=== PATIENT | female | born 1945 | race Caucasian/White ===

== ENCOUNTER 2016-11-20 12:26 | Inpatient (IN) | payer MEDICARE, BC ==
[2016-11-20 13:05] LABS: BASOPHILS % (AUTO) 1 % (0-3); EOSINOPHILS % (AUTO) 1 % (0-9); HEMATOCRIT 32 % (35-47); MONOCYTES % (AUTO) 6.4 % (0-12); NEUTROPHILS % (AUTO) 67.1 % (37-80)
[2016-11-20] MEDS ORDERED: HYDROMORPHONE HCL 2 MG/ML 1 ML SOL ONE ×2 (13:07→14:14)
[2016-11-20] MEDS: HYDROMORPHONE HCL 2 MG/ML 1 ML SOL IV PRN ×5 (13:10→21:10)
[2016-11-20 13:13] LABS: MEAN CORPUSCULAR VOLUME 75 fL (81-99)
[2016-11-20] MEDS ORDERED: ONDANSETRON HCL 4 MG/2 ML SOL ONE (13:13)
[2016-11-20] MEDS ORDERED: ONDANSETRON HCL 4 MG/2 ML SOL IV ONE (13:15)
[2016-11-20 13:16] LABS: ALBUMIN 3.4 gm/dl (3.4-5.0); ALT 19 IU/L (14-63); CALCIUM 8.8 mg/dl (8.5-10.1); GLOM FILT RATE 40 mL/min (>60); SODIUM 139 mMol/L (136-145)
[2016-11-20] MEDS: SODIUM CHLORIDE 0.9% FLUSH 10 ML SOL IV PRN ×3 (13:16→14:23)
[2016-11-20 13:35] LABS: ANISOCYTOSIS SLIGHT AMT; OVALOCYTES PRESENT
[2016-11-20 13:53] LABS: APPEARANCE,URINE Clear; BILIRUBIN,URINE NEGATIVE (NEGATIVE); COLOR,URINE Yellow; GLUCOSE, URINE (UA) NEGATIVE (NEGATIVE); KETONES,URINE NEGATIVE (NEGATIVE); LEUKOCYTE ESTERASE ,URINE NEGATIVE (NEGATIVE); NITRATE,URINE NEGATIVE (NEGATIVE); OCCULT BLOOD,URINE NEGATIVE (NEG-TRACE); UROBILINOGEN,URINE 0.2 (0.2-1.0 EU)
[2016-11-20] MEDS ORDERED: HEPARIN 500 Unit PRE-FILL 100 U/ML SOL IV PRN (13:57)
[2016-11-20 14:07] LABS: RBC,URINE 0-1 (0-3AV/HPF)
[2016-11-20 14:08] LABS: WBC,URINE 0-4 (0-5AV/HPF)
[2016-11-20] MEDS ORDERED: [UNRECOGNIZED DRUG - OTHER] PO PRN (15:19)
[2016-11-20] MEDS ORDERED: CARBIDOPA PO PRN (15:19)
[2016-11-20] MEDS ORDERED: LEVODOPA PO PRN (15:19)
[2016-11-20] MEDS ORDERED: CLONAZEPAM 0.5 MG TAB PO PRN (15:19)
[2016-11-20] MEDS ORDERED: METRONIDAZOLE 250 MG TAB PO SCH (16:00)
[2016-11-20] MEDS: OXYCODONE HYDROCHLORIDE 5 MG TAB PO PRN (16:55)
[2016-11-20] MEDS ORDERED: WARFARIN SODIUM 3 MG TAB PO SCH (18:00)
[2016-11-20] MEDS: SODIUM CHLORIDE 0.9% 1000ML 1,000 ML IV SCH ×2 (18:48→21:50)
[2016-11-20] MEDS: ONDANSETRON HCL 4 MG/2 ML SOL IV PRN (19:00)
[2016-11-20] MEDS ORDERED: DIPHENHYDRAMINE 25 MG/10 ML ELI ONE (19:14)
[2016-11-20] MEDS: DIPHENHYDRAMINE 25 MG CAP PO PRN (19:22)
[2016-11-20] MEDS ORDERED: ALBUTEROL NEB SOL 2.5MG/3ML 1 VIAL SOL NEB PRN (19:28)
[2016-11-20] MEDS: TRAZODONE HYDROCHLORIDE 50 MG TAB PO SCH (20:32)
[2016-11-20] MEDS: ATORVASTATIN 10 MG TAB PO SCH (20:33)
[2016-11-20] MEDS: CLONAZEPAM 0.5 MG TAB PO SCH (20:33)
[2016-11-20] MEDS: PANTOPRAZOLE SODIUM 40 MG ECT PO SCH (20:33)
[2016-11-20] MEDS: BUDESONIDE INH SCH (20:39)
[2016-11-20] MEDS: FLUTICASONE PROPIONATE SPR NAS SCH (20:39)
[2016-11-20] MEDS ORDERED: TEMAZEPAM 15MG 15 MG CAP PO PRN (20:59)
[2016-11-20] MEDS ORDERED: MONTELUKAST SODIUM 10 MG TAB PO PRN (21:00)
[2016-11-21] MEDS ORDERED: DIPHENHYDRAMINE 25 MG/10 ML ELI ONE (00:08)
[2016-11-21] MEDS: HYDROMORPHONE HCL 2 MG/ML 1 ML SOL IV PRN ×3 (00:17→05:15)
[2016-11-21] MEDS: ONDANSETRON HCL 4 MG/2 ML SOL IV PRN ×4 (00:19→17:54)
[2016-11-21] MEDS: SODIUM CHLORIDE 0.9% FLUSH 10 ML SOL IV PRN ×7 (00:20→21:26)
[2016-11-21] MEDS: DIPHENHYDRAMINE 25 MG CAP PO PRN (00:24)
[2016-11-21] MEDS: OXYCODONE HYDROCHLORIDE 5 MG TAB PO PRN ×5 (02:25→21:25)
[2016-11-21] MEDS ORDERED: PROCHLORPERAZINE EDISYLATE 5 MG/ML SOL IV ONE (02:45)
[2016-11-21 07:33] LABS: BASOPHILS % (AUTO) 1 % (0-3); EOSINOPHILS % (AUTO) 1 % (0-9); HEMATOCRIT 27 % (35-47); MEAN CORPUSCULAR HGB CONC 31.8 gm/dl (32.0-36.0); MONOCYTES % (AUTO) 6.4 % (0-12); NEUTROPHILS % (AUTO) 77.2 % (37-80)
[2016-11-21 07:35] LABS: CALCIUM 7.8 mg/dl (8.5-10.1); GLOM FILT RATE 41 mL/min (>60); POTASSIUM 3.7 mMol/L (3.5-5.1); SODIUM 140 mMol/L (136-145)
[2016-11-21 07:39] LABS: MEAN CORPUSCULAR VOLUME 76 fL (81-99)
[2016-11-21 07:53] LABS: ANISOCYTOSIS SLIGHT AMT; OVALOCYTES PRESENT
[2016-11-21] MEDS ORDERED: SODIUM CHLORIDE 0.9% 1000ML 1,000 ML IV ONE (08:53)
[2016-11-21] MEDS ORDERED: DIPHENHYDRAMINE 50 MG/ML SOL IV PRN (08:53)
[2016-11-21] MEDS: BUDESONIDE INH SCH ×2 (09:29→21:20)
[2016-11-21] MEDS: PANTOPRAZOLE SODIUM 40 MG ECT PO SCH ×2 (09:35→21:22)
[2016-11-21] MEDS: CLONAZEPAM 0.5 MG TAB PO SCH ×2 (09:35→21:27)
[2016-11-21] MEDS: CITALOPRAM 20 MG TAB PO SCH (09:36)
[2016-11-21] MEDS: VERAPAMIL HYDROCHLORIDE 120 MG PO SCH (09:36)
[2016-11-21] MEDS: FUROSEMIDE 20 MG TAB PO SCH (09:36)
[2016-11-21] MEDS: PRAMIPEXOLE DIHYDROCHLORIDE 0.5 MG TAB PO SCH (09:37)
[2016-11-21] MEDS: METOPROLOL SUCCINATE 25 MG TAB.ER.24H PO SCH (09:37)
[2016-11-21] MEDS: FLUTICASONE PROPIONATE SPR NAS SCH ×2 (14:43→21:22)
[2016-11-21] MEDS ORDERED: DIPHENHYDRAMINE 50 MG/ML SOL IV ONE (21:00)
[2016-11-21] MEDS: TRAZODONE HYDROCHLORIDE 50 MG TAB PO SCH (21:22)
[2016-11-21] MEDS: ATORVASTATIN 10 MG TAB PO SCH (21:23)
[2016-11-21 22:31] VITALS: RESP 20
[2016-11-22] MEDS: SODIUM CHLORIDE 0.9% FLUSH 10 ML SOL IV PRN ×4 (05:27→15:24)
[2016-11-22] MEDS: OXYCODONE HYDROCHLORIDE 5 MG TAB PO PRN ×2 (05:27→11:24)
[2016-11-22] MEDS: ONDANSETRON HCL 4 MG/2 ML SOL IV PRN ×3 (05:28→15:45)
[2016-11-22 07:22] LABS: CALCIUM 7.8 mg/dl (8.5-10.1); POTASSIUM 4.2 mMol/L (3.5-5.1)
[2016-11-22 07:33] LABS: BASOPHILS % (AUTO) 1 % (0-3); EOSINOPHILS % (AUTO) 2 % (0-9); HEMATOCRIT 25 % (35-47); MEAN CORPUSCULAR HGB CONC 31.1 gm/dl (32.0-36.0); NEUTROPHILS % (AUTO) 55.5 % (37-80)
[2016-11-22 07:38] LABS: MEAN CORPUSCULAR VOLUME 76 fL (81-99)
[2016-11-22 07:47] LABS: ANISOCYTOSIS SLIGHT AMT
[2016-11-22 07:48] LABS: TARGET CELLS PRESENT
[2016-11-22 08:38] LABS: SEDIMENTATION RATE 71 mm/hr (0-20)
[2016-11-22] MEDS ORDERED: LEVOFLOXACIN 25 MG/ML 500 MG in SODIUM CHLORIDE 0.9% 100 ML 100 ML IV ONE (08:42)
[2016-11-22] MEDS ORDERED: LEVOFLOXACIN 500 MG in 100 ML (PREMIX) IV SCH (09:45)
[2016-11-22] MEDS: FUROSEMIDE 20 MG TAB PO SCH (11:24)
[2016-11-22] MEDS: PRAMIPEXOLE DIHYDROCHLORIDE 0.5 MG TAB PO SCH (11:25)
[2016-11-22] MEDS: PANTOPRAZOLE SODIUM 40 MG ECT PO SCH (11:25)
[2016-11-22] MEDS: CITALOPRAM 20 MG TAB PO SCH (11:26)
[2016-11-22] MEDS: CLONAZEPAM 0.5 MG TAB PO SCH (11:26)
[2016-11-22] MEDS: VERAPAMIL HYDROCHLORIDE 120 MG PO SCH (11:27)
[2016-11-22] MEDS: METOPROLOL SUCCINATE 25 MG TAB.ER.24H PO SCH (11:28)
[2016-11-22] MEDS: BUDESONIDE INH SCH (11:29)
[2016-11-22] MEDS: FLUTICASONE PROPIONATE SPR NAS SCH (11:29)
[2016-11-22 11:34] LABS: ABO A; RH TYPE Positive
[2016-11-22 11:36] LABS: ANTIBODY SCREEN Positive
[2016-11-22] MEDS ORDERED: ACETAMINOPHEN 325 MG PO PRN (11:50)
[2016-11-22] MEDS: HYDROMORPHONE HCL 2 MG/ML 1 ML SOL IV PRN (12:27)
[2016-11-22 15:01] LABS: ABG PH 7.28 (7.35-7.45)
[2016-11-22 15:16] VITALS: TEMP 99.3
[2016-11-22] MEDS ORDERED: ATROPINE 0.1 MG/ML SOL IV ONE (15:20)
[2016-11-22] MEDS ORDERED: ATROPINE 0.1 MG/ML SOL ONE (15:20)
[2016-11-22] MEDS: SODIUM CHLORIDE 0.9% 1000ML 1,000 ML IV SCH (16:15)
[2016-11-22 18:00] VITALS: O2SAT 92
[2016-11-22 18:01] VITALS: BP 92/30; PULSE 98
[2016-11-23] MEDS ORDERED: WARFARIN SODIUM 3 MG TAB PO SCH (18:00)
== END 2016-11-22 16:30 | disposition short-term general hospital (02) | DRG 312 ==
LOC: ED 12:26 → UNDOADMOB 14:39 → ACUTE CARE 14:39 → OBSVTOIN 11-22 08:42 → UNDODISOB 11-22 16:30
PROVIDERS: ADMIT Family Medicine; ATTEND Family Medicine
DX: R55 Syncope and collapse (principal); J47.1 Bronchiectasis with (acute) exacerbation; I50.9 Heart failure, unspecified; K81.9 Cholecystitis, unspecified; G44.209 Tension-type headache, unspecified, not intractable; R19.5 Other fecal abnormalities; Z79.01 Long term (current) use of anticoagulants; R07.9 Chest pain, unspecified; D50.9 Iron deficiency anemia, unspecified; F32.9 Major depressive disorder, single episode, unspecified; R50.9 Fever, unspecified; R10.811 Right upper quadrant abdominal tenderness
CPT/HCPCS: 36415; 36591; 36600; 70450; 71020; 74020; 80048; 80053; 81001; 82272; 82803; 83880; 84484; 85025; 85610; 85651; 86850; 86900; 86901; 87040; 93005; 94760; 96374; 96375; 99218; 99284; 99285; J0461; J0780; J1170; J1200; J1956; J2405; J7603

== ENCOUNTER 2016-12-17 08:20 | Emergency (ER) | payer MEDICARE, BC ==
[2016-12-17] MEDS ORDERED: SODIUM CHLORIDE 0.9% 500 ML 500 ML IV ONE ×2 (09:02→10:30)
[2016-12-17] MEDS ORDERED: HYDROMORPHONE HCL 2 MG/ML 1 ML SOL IV ONE ×5 (09:02→14:38)
[2016-12-17] MEDS ORDERED: ONDANSETRON HCL 4 MG/2 ML 4 MG in SODIUM CHLORIDE 0.9% 100 ML 100 ML IV ONE (09:02)
[2016-12-17] MEDS ORDERED: ONDANSETRON HCL 4 MG/2 ML SOL ONE (09:19)
[2016-12-17] MEDS ORDERED: HYDROMORPHONE HCL 2 MG/ML 1 ML SOL ONE ×4 (09:19→14:40)
[2016-12-17 09:20] LABS: BASOPHILS % (AUTO) 1 % (0-3); EOSINOPHILS % (AUTO) 2 % (0-9); HEMATOCRIT 31 % (35-47); MEAN CORPUSCULAR HGB CONC 33.4 gm/dl (32.0-36.0); MONOCYTES % (AUTO) 7.5 % (0-12); NEUTROPHILS % (AUTO) 70.7 % (37-80)
[2016-12-17 09:21] LABS: MEAN CORPUSCULAR VOLUME 78 fL (81-99)
[2016-12-17 09:34] LABS: ALBUMIN 2.9 gm/dl (3.4-5.0); CALCIUM 7.9 mg/dl (8.5-10.1); POTASSIUM 4.1 mMol/L (3.5-5.1)
[2016-12-17 10:52] VITALS: TEMP 97.6
[2016-12-17] MEDS ORDERED: SODIUM CHLORIDE 0.9% FLUSH 10 ML SOL IV PRN (10:53)
[2016-12-17] MEDS ORDERED: SODIUM CHLORIDE 0.9% 1000ML 1,000 ML IV SCH (11:45)
[2016-12-17 14:38] VITALS: BP 101/53; PULSE 62; RESP 16; O2SAT 96
== END 2016-12-17 14:48 | disposition short-term general hospital (02) | DRG 392 ==
LOC: ED 08:20
DX: R10.11 Right upper quadrant pain (principal); I48.91 Unspecified atrial fibrillation
CPT/HCPCS: 36591; 71010; 74020; 80053; 82150; 85025; 85610; 96365; 96366; 96374; 96375; 99283; 99285; J1170; J2405

== ENCOUNTER 2017-01-05 08:17 | Emergency (ER) | payer MEDICARE, BC ==
[2017-01-05 08:25] VITALS: RESP 18; TEMP 98.8
[2017-01-05] MEDS ORDERED: SODIUM CHLORIDE 0.9% 1000ML 1,000 ML IV ONE (08:45)
[2017-01-05] MEDS: SODIUM CHLORIDE 0.9% FLUSH 10 ML SOL IV PRN ×2 (08:50→10:14)
[2017-01-05] MEDS ORDERED: HEPARIN 500 Unit PRE-FILL 100 U/ML SOL IV PRN (08:51)
[2017-01-05] MEDS ORDERED: HEPARIN SODIUM 100 U/ML SOL IV ONE (10:23)
[2017-01-05 10:46] VITALS: BP 159/79; PULSE 60; O2SAT 98
== END 2017-01-05 10:30 | disposition home or self-care (01) | DRG 641 ==
LOC: ED 08:17
DX: E86.0 Dehydration (principal); R11.0 Nausea
CPT/HCPCS: 96365; 99283; 99285; J1644

== ENCOUNTER 2017-01-10 17:51 | Inpatient (IN) | payer MEDICARE, BC ==
[2017-01-10] MEDS ORDERED: HYDROMORPHONE HCL 2 MG/ML 1 ML SOL IV ONE (18:13)
[2017-01-10] MEDS ORDERED: ONDANSETRON HCL 4 MG/2 ML SOL IV ONE (18:13)
[2017-01-10] MEDS ORDERED: HYDROMORPHONE HCL 2 MG/ML 1 ML SOL ONE (18:28)
[2017-01-10] MEDS ORDERED: ONDANSETRON HCL 4 MG/2 ML SOL ONE (18:29)
[2017-01-10 18:31] LABS: BASOPHILS % (AUTO) 1 % (0-3); EOSINOPHILS % (AUTO) 1 % (0-9); HEMATOCRIT 33 % (35-47); MEAN CORPUSCULAR HGB CONC 32.5 gm/dl (32.0-36.0); MONOCYTES % (AUTO) 6.3 % (0-12); NEUTROPHILS % (AUTO) 69.5 % (37-80)
[2017-01-10 18:33] LABS: MEAN CORPUSCULAR VOLUME 80 fL (81-99)
[2017-01-10] MEDS ORDERED: HEPARIN 500 Unit PRE-FILL 100 U/ML SOL IV PRN (18:40)
[2017-01-10 18:43] LABS: ALBUMIN 3.4 gm/dl (3.4-5.0); CALCIUM 8.3 mg/dl (8.5-10.1)
[2017-01-10 18:50] LABS: ANISOCYTOSIS SLIGHT AMT; OVALOCYTES PRESENT
[2017-01-10] MEDS ORDERED: PROMETHAZINE HYDROCHLORIDE 25 MG/ML SOL IV ONE (19:12)
[2017-01-10] MEDS ORDERED: PROMETHAZINE HYDROCHLORIDE 25 MG/ML SOL ONE (19:15)
[2017-01-10] MEDS ORDERED: DIPHENHYDRAMINE 50 MG/ML SOL IV ONE (20:01)
[2017-01-10] MEDS ORDERED: DIPHENHYDRAMINE 50 MG/ML SOL ONE (20:03)
[2017-01-10] MEDS: SODIUM CHLORIDE 0.9% 1000ML 1,000 ML IV SCH (20:15)
[2017-01-10] MEDS: SODIUM CHLORIDE 0.9% FLUSH 10 ML SOL IV PRN (20:47)
[2017-01-10] MEDS ORDERED: LORAZEPAM 2 MG/ML SOL IM PRN (22:14)
[2017-01-10] MEDS: HYDROMORPHONE HCL 2 MG/ML 1 ML SOL IV PRN (22:20)
[2017-01-10] MEDS: ONDANSETRON HCL 4 MG/2 ML SOL IV PRN (22:23)
[2017-01-10] MEDS: ENOXAPARIN 40 MG SOL SC SCH (22:29)
[2017-01-11] MEDS: HYDROMORPHONE HCL 2 MG/ML 1 ML SOL IV PRN ×5 (02:09→19:43)
[2017-01-11] MEDS: PROMETHAZINE HYDROCHLORIDE 25 MG/ML SOL IV PRN ×2 (02:42→10:28)
[2017-01-11] MEDS: SODIUM CHLORIDE 0.9% 1000ML 1,000 ML IV SCH ×3 (04:22→21:29)
[2017-01-11] MEDS: ONDANSETRON HCL 4 MG/2 ML SOL IV PRN (07:51)
[2017-01-11] MEDS: ENOXAPARIN 40 MG SOL SC SCH (10:28)
[2017-01-11 10:30] LABS: BILIRUBIN,URINE 1+ (NEGATIVE); COLOR,URINE Yellow; GLUCOSE, URINE (UA) NEGATIVE (NEGATIVE); KETONES,URINE TRACE (NEGATIVE); LEUKOCYTE ESTERASE ,URINE NEGATIVE (NEGATIVE); NITRATE,URINE NEGATIVE (NEGATIVE); OCCULT BLOOD,URINE TRACE INTACT (NEG-TRACE); PH,URINE 5.5; UROBILINOGEN,URINE 0.2 (0.2-1.0 EU)
[2017-01-11 11:00] LABS: APPEARANCE,URINE CLEAR
[2017-01-11 11:01] LABS: ICTOTEST,URINE NEGATIVE (NEGATIVE)
[2017-01-11] MEDS ORDERED: ONDANSETRON 4 MG ODT PO PRN (13:41)
[2017-01-11] MEDS ORDERED: CODEINE/GUAIFENESIN 5 ML SOL PO PRN (13:41)
[2017-01-11] MEDS ORDERED: [UNRECOGNIZED DRUG - OTHER] PO PRN (13:41)
[2017-01-11] MEDS ORDERED: OXYCODONE HYDROCHLORIDE 5 MG TAB PO PRN (13:41)
[2017-01-11] MEDS ORDERED: DRONABINOL 2.5 MG PO PRN (13:41)
[2017-01-11] MEDS ORDERED: CARBIDOPA PO PRN (13:41)
[2017-01-11] MEDS ORDERED: LEVODOPA PO PRN (13:41)
[2017-01-11] MEDS ORDERED: LORAZEPAM 0.5 MG TAB PO PRN (13:44)
[2017-01-11] MEDS ORDERED: FLUTICASONE/SALMETEROL 500/50 60 PUFF DSK INH PRN (14:15)
[2017-01-11] MEDS ORDERED: PRAMIPEXOLE DIHYDROCHLORIDE 0.5 MG TAB PO PRN (14:30)
[2017-01-11 14:33] LABS: CALCIUM 7.4 mg/dl (8.5-10.1); POTASSIUM 4.4 mMol/L (3.5-5.1)
[2017-01-11] MEDS: PROCHLORPERAZINE MALEATE 5 MG TAB PO SCH ×3 (14:42→20:10)
[2017-01-11] MEDS: PANTOPRAZOLE SODIUM 40 MG ECT PO SCH (14:43)
[2017-01-11 14:45] LABS: BASOPHILS % (AUTO) 0 % (0-3); EOSINOPHILS % (AUTO) 0 % (0-9); HEMATOCRIT 29 % (35-47); MEAN CORPUSCULAR HGB CONC 32.9 gm/dl (32.0-36.0); MONOCYTES % (AUTO) 5.3 % (0-12); NEUTROPHILS % (AUTO) 79.7 % (37-80)
[2017-01-11 14:46] LABS: MEAN CORPUSCULAR VOLUME 81 fL (81-99)
[2017-01-11 14:54] LABS: ANISOCYTOSIS SLIGHT AMT; OVALOCYTES PRESENT
[2017-01-11] MEDS: CLONAZEPAM 0.5 MG TAB PO PRN (15:02)
[2017-01-11] MEDS ORDERED: ALBUTEROL NEB SOL 2.5MG/3ML 1 VIAL SOL NEB PRN (15:21)
[2017-01-11] MEDS: URSODIOL 300 MG CAP PO SCH ×2 (16:12→20:08)
[2017-01-11] MEDS: WARFARIN SODIUM 3 MG TAB PO SCH (17:54)
[2017-01-11] MEDS: ALBUTEROL/IPRATROPIUM 1 VIAL SOL INH SCH ×2 (17:55→21:25)
[2017-01-11] MEDS: SODIUM CHLORIDE 0.9% FLUSH 10 ML SOL IV PRN (19:44)
[2017-01-11] MEDS: TRAZODONE HYDROCHLORIDE 50 MG TAB PO SCH (20:08)
[2017-01-11] MEDS: ATORVASTATIN 10 MG TAB PO SCH (20:09)
[2017-01-11] MEDS: BUDESONIDE INH SCH (20:14)
[2017-01-11] MEDS ORDERED: MONTELUKAST SODIUM 10 MG TAB PO SCH (21:00)
[2017-01-11] MEDS: ACETAMINOPHEN 325 MG PO PRN (22:25)
[2017-01-12] MEDS: HYDROMORPHONE HCL 2 MG/ML 1 ML SOL IV PRN ×2 (02:17→08:13)
[2017-01-12] MEDS: SODIUM CHLORIDE 0.9% FLUSH 10 ML SOL IV PRN ×4 (02:18→21:10)
[2017-01-12] MEDS: PROMETHAZINE HYDROCHLORIDE 25 MG/ML SOL IV PRN ×2 (02:18→15:13)
[2017-01-12] MEDS: SODIUM CHLORIDE 0.9% 1000ML 1,000 ML IV SCH ×2 (05:16→13:08)
[2017-01-12 07:40] LABS: CALCIUM 7.3 mg/dl (8.5-10.1); POTASSIUM 4.3 mMol/L (3.5-5.1)
[2017-01-12 08:17] LABS: BASOPHILS % (AUTO) 1 % (0-3); EOSINOPHILS % (AUTO) 1 % (0-9); HEMATOCRIT 27 % (35-47); MEAN CORPUSCULAR HGB CONC 32.7 gm/dl (32.0-36.0); MONOCYTES % (AUTO) 6.3 % (0-12); NEUTROPHILS % (AUTO) 63.3 % (37-80)
[2017-01-12 08:25] LABS: MEAN CORPUSCULAR VOLUME 81 fL (81-99)
[2017-01-12 08:26] LABS: ANISOCYTOSIS SLIGHT AMT; OVALOCYTES PRESENT
[2017-01-12] MEDS: CLONAZEPAM 0.5 MG TAB PO PRN ×2 (08:40→21:04)
[2017-01-12] MEDS: PROCHLORPERAZINE MALEATE 5 MG TAB PO SCH ×3 (08:43→21:03)
[2017-01-12] MEDS: URSODIOL 300 MG CAP PO SCH ×3 (08:44→21:02)
[2017-01-12] MEDS: BUDESONIDE INH SCH ×2 (08:47→20:48)
[2017-01-12] MEDS: FLUTICASONE PROPIONATE SPR NAS SCH (08:48)
[2017-01-12] MEDS: LISINOPRIL 5 MG TAB PO SCH (08:49)
[2017-01-12] MEDS: FUROSEMIDE 20 MG TAB PO SCH ×4 (08:49→14:01)
[2017-01-12] MEDS: PANTOPRAZOLE SODIUM 40 MG ECT PO SCH (08:56)
[2017-01-12] MEDS: ALBUTEROL/IPRATROPIUM 1 VIAL SOL INH SCH ×4 (09:07→21:12)
[2017-01-12] MEDS: OXYCODONE HYDROCHLORIDE 5 MG TAB PO PRN ×2 (10:21→16:24)
[2017-01-12] MEDS: WARFARIN SODIUM 3 MG TAB PO SCH (18:01)
[2017-01-12] MEDS: ATORVASTATIN 10 MG TAB PO SCH (21:03)
[2017-01-12] MEDS: ACETAMINOPHEN 325 MG PO PRN (21:04)
[2017-01-12] MEDS: TRAZODONE HYDROCHLORIDE 50 MG TAB PO SCH (21:04)
[2017-01-13] MEDS: OXYCODONE HYDROCHLORIDE 5 MG TAB PO PRN ×4 (03:33→21:05)
[2017-01-13] MEDS: PANTOPRAZOLE SODIUM 40 MG ECT PO SCH (07:12)
[2017-01-13] MEDS: SODIUM CHLORIDE 0.9% FLUSH 10 ML SOL IV PRN ×2 (07:15→07:16)
[2017-01-13 07:36] LABS: BASOPHILS % (AUTO) 1 % (0-3); EOSINOPHILS % (AUTO) 2 % (0-9); HEMATOCRIT 23 % (35-47); MEAN CORPUSCULAR HGB CONC 33.4 gm/dl (32.0-36.0); MONOCYTES % (AUTO) 8.6 % (0-12); NEUTROPHILS % (AUTO) 56.9 % (37-80)
[2017-01-13 07:41] LABS: MEAN CORPUSCULAR VOLUME 80 fL (81-99)
[2017-01-13] MEDS: BUDESONIDE INH SCH ×2 (09:04→21:06)
[2017-01-13] MEDS: PROCHLORPERAZINE MALEATE 5 MG TAB PO SCH ×3 (09:05→21:04)
[2017-01-13] MEDS: FUROSEMIDE 20 MG TAB PO SCH ×2 (09:05→11:53)
[2017-01-13] MEDS: LISINOPRIL 5 MG TAB PO SCH (09:06)
[2017-01-13] MEDS: URSODIOL 300 MG CAP PO SCH ×3 (09:06→21:26)
[2017-01-13] MEDS: FLUTICASONE PROPIONATE SPR NAS SCH (09:15)
[2017-01-13] MEDS: ALBUTEROL/IPRATROPIUM 1 VIAL SOL INH SCH ×4 (09:19→21:04)
[2017-01-13] MEDS ORDERED: SODIUM CHLORIDE 0.9% FLUSH 10 ML SOL IV PRN (09:21)
[2017-01-13] MEDS: CLONAZEPAM 0.5 MG TAB PO PRN ×2 (11:12→21:25)
[2017-01-13] MEDS ORDERED: WARFARIN SODIUM 1 MG TAB ONE ×3 (18:41)
[2017-01-13] MEDS: WARFARIN SODIUM 3 MG TAB PO SCH (18:43)
[2017-01-13] MEDS: ATORVASTATIN 10 MG TAB PO SCH (21:04)
[2017-01-13] MEDS: TRAZODONE HYDROCHLORIDE 50 MG TAB PO SCH (21:04)
[2017-01-13] MEDS: ACETAMINOPHEN 325 MG PO PRN (21:54)
[2017-01-14] MEDS: OXYCODONE HYDROCHLORIDE 5 MG TAB PO PRN ×5 (03:00→22:34)
[2017-01-14] MEDS: PANTOPRAZOLE SODIUM 40 MG ECT PO SCH (06:49)
[2017-01-14 07:30] LABS: BASOPHILS % (AUTO) 1 % (0-3); EOSINOPHILS % (AUTO) 3 % (0-9); HEMATOCRIT 24 % (35-47); MEAN CORPUSCULAR HGB CONC 33.8 gm/dl (32.0-36.0); MONOCYTES % (AUTO) 9.6 % (0-12); NEUTROPHILS % (AUTO) 48.2 % (37-80)
[2017-01-14 07:34] LABS: MEAN CORPUSCULAR VOLUME 80 fL (81-99)
[2017-01-14 08:11] LABS: ANISOCYTOSIS SLIGHT AMT
[2017-01-14 08:12] LABS: OVALOCYTES PRESENT
[2017-01-14] MEDS: LISINOPRIL 5 MG TAB PO SCH (09:33)
[2017-01-14] MEDS: POLYETHYLENE GLYCOL 17 GM/1 TBS PDS PO SCH ×2 (09:34→22:37)
[2017-01-14] MEDS: URSODIOL 300 MG CAP PO SCH ×3 (09:35→22:37)
[2017-01-14] MEDS: FLUTICASONE PROPIONATE SPR NAS SCH (09:36)
[2017-01-14] MEDS: PROCHLORPERAZINE MALEATE 5 MG TAB PO SCH ×3 (09:37→22:36)
[2017-01-14] MEDS: CLONAZEPAM 0.5 MG TAB PO PRN (09:49)
[2017-01-14] MEDS: FUROSEMIDE 20 MG TAB PO SCH ×2 (09:49→13:45)
[2017-01-14] MEDS: ALBUTEROL/IPRATROPIUM 1 VIAL SOL INH SCH ×4 (09:51→22:37)
[2017-01-14] MEDS: BUDESONIDE INH SCH ×2 (13:43→22:35)
[2017-01-14] MEDS: CEFUROXIME 250 MG/5 ML PDR PO SCH ×2 (13:44→22:58)
[2017-01-14] MEDS: SODIUM CHLORIDE 0.9% FLUSH 10 ML SOL IV PRN ×2 (17:22→19:07)
[2017-01-14 17:26] LABS: ABO A; RH TYPE Positive; UNIT TYPE A POSITIVE
[2017-01-14 17:33] LABS: ANTIBODY SCREEN Positive
[2017-01-14] MEDS ORDERED: SODIUM CHLORIDE 0.9% 500 ML 500 ML IV ONE (18:24)
[2017-01-14 20:26] LABS: UNIT TYPE A POSITIVE
[2017-01-14] MEDS: FUROSEMIDE 20mg SOL IV SCH (22:11)
[2017-01-14] MEDS: TRAZODONE HYDROCHLORIDE 50 MG TAB PO SCH (22:36)
[2017-01-14] MEDS: ATORVASTATIN 10 MG TAB PO SCH (22:36)
[2017-01-15] MEDS: FUROSEMIDE 20mg SOL IV SCH (01:00)
[2017-01-15] MEDS: SODIUM CHLORIDE 0.9% FLUSH 10 ML SOL IV PRN ×2 (01:01→11:53)
[2017-01-15] MEDS: OXYCODONE HYDROCHLORIDE 5 MG TAB PO PRN ×2 (02:33→08:26)
[2017-01-15] MEDS: PANTOPRAZOLE SODIUM 40 MG ECT PO SCH (06:50)
[2017-01-15 07:37] LABS: BASOPHILS % (AUTO) 1 % (0-3); EOSINOPHILS % (AUTO) 4 % (0-9); HEMATOCRIT 31 % (35-47); MEAN CORPUSCULAR HGB CONC 34.2 gm/dl (32.0-36.0); MONOCYTES % (AUTO) 8.8 % (0-12); NEUTROPHILS % (AUTO) 56.8 % (37-80)
[2017-01-15 07:43] LABS: CALCIUM 7.2 mg/dl (8.5-10.1); POTASSIUM 3.4 mMol/L (3.5-5.1)
[2017-01-15 07:46] LABS: MEAN CORPUSCULAR VOLUME 80 fL (81-99)
[2017-01-15 08:24] VITALS: BP 129/62; RESP 18; TEMP 98.2
[2017-01-15] MEDS: CLONAZEPAM 0.5 MG TAB PO PRN (08:25)
[2017-01-15] MEDS: FLUTICASONE PROPIONATE SPR NAS SCH (08:27)
[2017-01-15] MEDS: PROCHLORPERAZINE MALEATE 5 MG TAB PO SCH (08:28)
[2017-01-15] MEDS: FUROSEMIDE 20 MG TAB PO SCH ×2 (08:28→11:47)
[2017-01-15] MEDS: LISINOPRIL 5 MG TAB PO SCH (08:29)
[2017-01-15] MEDS: URSODIOL 300 MG CAP PO SCH (08:32)
[2017-01-15] MEDS: BUDESONIDE INH SCH (08:33)
[2017-01-15] MEDS: POLYETHYLENE GLYCOL 17 GM/1 TBS PDS PO SCH ×2 (08:37→11:47)
[2017-01-15] MEDS: ALBUTEROL/IPRATROPIUM 1 VIAL SOL INH SCH (08:38)
[2017-01-15 08:46] VITALS: PULSE 86; O2SAT 98
[2017-01-15] MEDS: CEFUROXIME 250 MG/5 ML PDR PO SCH (09:14)
== END 2017-01-15 13:00 | disposition home or self-care (01) | DRG 390 ==
LOC: ED 17:51 → ACUTE CARE 20:49
PROVIDERS: ADMIT Emergency Medicine; ATTEND Emergency Medicine
DX: K56.60 Unspecified intestinal obstruction (principal); I48.0 Paroxysmal atrial fibrillation; N18.3 Chronic kidney disease, stage 3 (moderate); Z79.01 Long term (current) use of anticoagulants; Z93.3 Colostomy status; R05 Cough; D64.9 Anemia, unspecified
CPT/HCPCS: 36591; 71020; 74176; 80048; 80053; 81001; 82150; 84443; 85025; 85610; 86850; 86900; 86901; 86922; 94150; 94640; 94664; 94760; 94762; 96365; 96374; 96375; 99070; 99221; 99285; J1170; J1200; J1644; J1650; J2060; J2405; J2550; J7603; J7620; P9016; Q0164

== ENCOUNTER 2017-02-22 20:50 | Observation (INO) | payer MEDICARE, BC ==
[2017-02-22] MEDS ORDERED: ONDANSETRON HCL 4 MG/2 ML SOL IV ONE (21:51)
[2017-02-22 21:59] LABS: BASOPHILS % (AUTO) 0 % (0-3); EOSINOPHILS % (AUTO) 0 % (0-9); HEMATOCRIT 32 % (35-47); MEAN CORPUSCULAR HGB CONC 32.8 gm/dl (32.0-36.0); MEAN CORPUSCULAR VOLUME 83 fL (81-99); MONOCYTES % (AUTO) 5.1 % (0-12); NEUTROPHILS % (AUTO) 85.9 % (37-80)
[2017-02-22 22:23] LABS: ALBUMIN 2.7 gm/dl (3.4-5.0); CALCIUM 7.4 mg/dl (8.5-10.1)
[2017-02-22] MEDS ORDERED: ONDANSETRON HCL 4 MG/2 ML SOL ONE (22:55)
[2017-02-22] MEDS ORDERED: ALBUTEROL/IPRATROPIUM 1 VIAL SOL INH ONE (23:04)
[2017-02-22] MEDS ORDERED: ALBUTEROL/IPRATROPIUM 1 VIAL SOL ONE (23:04)
[2017-02-22] MEDS ORDERED: ALBUTEROL/IPRATROPIUM 1 VIAL SOL INH PRN (23:25)
[2017-02-22] MEDS ORDERED: ALBUTEROL NEB SOL 2.5MG/3ML 1 VIAL SOL NEB PRN (23:25)
[2017-02-22] MEDS ORDERED: ONDANSETRON HCL 4 MG/2 ML SOL IV PRN (23:26)
[2017-02-22] MEDS ORDERED: PROCHLORPERAZINE MALEATE 5 MG TAB PO PRN (23:29)
[2017-02-22] MEDS ORDERED: FLUTICASONE IH PRN (23:29)
[2017-02-22] MEDS ORDERED: EPINEPHRINE 0.3 MG/0.3 ML KIT SC PRN (23:29)
[2017-02-22] MEDS ORDERED: CLONAZEPAM 0.5 MG TAB PO PRN (23:29)
[2017-02-22] MEDS ORDERED: PRAMIPEXOLE DIHYDROCHLORIDE 0.5 MG PO PRN (23:29)
[2017-02-22] MEDS ORDERED: DRONABINOL 2.5 MG PO PRN (23:29)
[2017-02-22] MEDS ORDERED: CODEINE/GUAIFENESIN 5 ML SOL PO PRN (23:29)
[2017-02-22] MEDS ORDERED: FUROSEMIDE 20 MG TAB PO PRN (23:29)
[2017-02-22] MEDS ORDERED: SALMETEROL IH PRN (23:29)
[2017-02-22] MEDS ORDERED: LEVOFLOXACIN 500 MG (PREMIX) 500 MG/100 ML SOL IV SCH (23:30)
[2017-02-22] MEDS ORDERED: HEPARIN 500 Unit PRE-FILL 100 U/ML SOL IV PRN (23:45)
[2017-02-23] MEDS ORDERED: POLYETHYLENE GLYCOL 17 GM/1 TBS PDS PO PRN (01:00)
[2017-02-23 01:45] LABS: APPEARANCE,URINE Slightly Cloudy; BILIRUBIN,URINE 1+ (NEGATIVE); COLOR,URINE Amber; GLUCOSE, URINE (UA) NEGATIVE (NEGATIVE); KETONES,URINE TRACE (NEGATIVE); LEUKOCYTE ESTERASE ,URINE NEGATIVE (NEGATIVE); NITRATE,URINE NEGATIVE (NEGATIVE); OCCULT BLOOD,URINE TRACE INTACT (NEG-TRACE); UROBILINOGEN,URINE 0.2 (0.2-1.0 EU)
[2017-02-23] MEDS: HYDROMORPHONE HCL 2 MG/ML SOL IV PRN ×3 (01:46→11:09)
[2017-02-23] MEDS: SODIUM CHLORIDE 0.9% FLUSH 10 ML SOL IV SCH ×3 (01:54→11:10)
[2017-02-23 02:10] LABS: ICTOTEST,URINE NEGATIVE (NEGATIVE); RBC,URINE 0-3 (0-3AV/HPF)
[2017-02-23] MEDS: OXYCODONE HYDROCHLORIDE 5 MG TAB PO PRN ×2 (02:59→09:39)
[2017-02-23] MEDS ORDERED: WARFARIN SODIUM 1 MG TAB PO ONE (03:00)
[2017-02-23 07:39] LABS: BASOPHILS % (AUTO) 1 % (0-3); EOSINOPHILS % (AUTO) 1 % (0-9); HEMATOCRIT 30 % (35-47); MEAN CORPUSCULAR VOLUME 84 fL (81-99); MONOCYTES % (AUTO) 6.3 % (0-12)
[2017-02-23 07:49] LABS: CALCIUM 7.5 mg/dl (8.5-10.1); POTASSIUM 4.9 mMol/L (3.5-5.1)
[2017-02-23 08:16] VITALS: BP 129/74; PULSE 71; RESP 22; TEMP 98.1; O2SAT 98
[2017-02-23] MEDS ORDERED: CITALOPRAM 20 MG TAB PO SCH (09:00)
[2017-02-23] MEDS ORDERED: BUDESONIDE INH SCH (09:00)
[2017-02-23] MEDS ORDERED: PANTOPRAZOLE SODIUM 40 MG ECT PO SCH (09:00)
[2017-02-23] MEDS ORDERED: LISINOPRIL 5 MG TAB PO SCH (09:00)
[2017-02-23] MEDS: Non-Formulary Medication MISC (Fluticasone Propionate 2 SPR) NAS SCH ×2 (09:40→10:21)
[2017-02-23] MEDS: URSODIOL 300 MG PO SCH ×2 (09:40→10:20)
[2017-02-23] MEDS ORDERED: SODIUM CHLORIDE 0.9% 1000ML 1,000 ML IV ONE (11:02)
[2017-02-23] MEDS ORDERED: WARFARIN SODIUM 1 MG TAB PO SCH (18:00)
[2017-02-23] MEDS ORDERED: MONTELUKAST SODIUM 5 MG CTB PO SCH (21:00)
[2017-02-23] MEDS ORDERED: TRAZODONE HYDROCHLORIDE 50 MG TAB PO SCH (21:00)
[2017-02-23] MEDS ORDERED: ATORVASTATIN 10 MG TAB PO SCH (21:00)
[2017-02-23] MEDS ORDERED: [UNRECOGNIZED DRUG - OTHER] PO SCH (21:00)
[2017-02-23] MEDS ORDERED: LEVODOPA PO SCH (21:00)
[2017-02-23] MEDS ORDERED: CARBIDOPA PO SCH (21:00)
[2017-02-25] MEDS ORDERED: WARFARIN SODIUM 1 MG TAB PO SCH (18:00)
== END 2017-02-23 13:15 | disposition home or self-care (01) | DRG 391 ==
LOC: ED 20:50 → ACUTE CARE 23:15
PROVIDERS: ADMIT Emergency Medicine; ATTEND Emergency Medicine
DX: R10.13 Epigastric pain (principal); J18.9 Pneumonia, unspecified organism; N39.0 Urinary tract infection, site not specified; Z79.01 Long term (current) use of anticoagulants; R06.2 Wheezing
CPT/HCPCS: 71010; 74176; 80048; 80053; 81001; 82150; 83880; 84484; 85025; 85610; 87804; 93005; 94762; 96374; 99217; 99219; 99222; 99238; 99283; 99284; J1170; J1956; J2405; J7603; J7620; Q0164

== ENCOUNTER 2017-04-25 00:45 | Inpatient (IN) | payer MEDICARE, BC ==
[2017-04-25] MEDS ORDERED: SODIUM CHLORIDE 0.9% 1000ML 1,000 ML IV ONE (01:18)
[2017-04-25] MEDS ORDERED: ONDANSETRON HCL 4 MG/2 ML SOL IV ONE (01:18)
[2017-04-25] MEDS ORDERED: HYDROMORPHONE 1 MG/ML SYRINGE IV ONE ×2 (01:18→03:09)
[2017-04-25] MEDS: SODIUM CHLORIDE 0.9% FLUSH 10 ML SOL IV PRN (01:30)
[2017-04-25] MEDS ORDERED: HYDROMORPHONE 1 MG/ML SYRINGE ONE ×2 (01:34→03:10)
[2017-04-25] MEDS ORDERED: ONDANSETRON HCL 4 MG/2 ML SOL ONE (01:34)
[2017-04-25 01:39] LABS: BASOPHILS % (AUTO) 1 % (0-3); EOSINOPHILS % (AUTO) 6 % (0-9); HEMATOCRIT 28 % (35-47); MONOCYTES % (AUTO) 6.5 % (0-12); NEUTROPHILS % (AUTO) 66.4 % (37-80)
[2017-04-25] MEDS ORDERED: HEPARIN 500 Unit PRE-FILL 100 U/ML SOL IV PRN (01:46)
[2017-04-25 01:48] LABS: APPEARANCE,URINE Clear; BILIRUBIN,URINE NEGATIVE (NEGATIVE); COLOR,URINE Yellow; GLUCOSE, URINE (UA) NEGATIVE (NEGATIVE); KETONES,URINE NEGATIVE (NEGATIVE); LEUKOCYTE ESTERASE ,URINE NEGATIVE (NEGATIVE); NITRATE,URINE NEGATIVE (NEGATIVE); OCCULT BLOOD,URINE NEGATIVE (NEG-TRACE); UROBILINOGEN,URINE 0.2 (0.2-1.0 EU)
[2017-04-25 01:50] LABS: MEAN CORPUSCULAR VOLUME 79 fL (81-99)
[2017-04-25 01:54] LABS: ALBUMIN 2.7 gm/dl (3.4-5.0); CALCIUM 8.1 mg/dl (8.5-10.1); POTASSIUM 3.9 mMol/L (3.5-5.1)
[2017-04-25 01:58] LABS: RBC,URINE 0-1 (0-3AV/HPF); WBC,URINE 0-1 (0-5AV/HPF)
[2017-04-25] MEDS ORDERED: VANCOMYCIN HYDROCHLORIDE 500 MG PDS IV ONE ×2 (03:52→15:49)
[2017-04-25] MEDS: VANCOMYCIN HCL 500 MG PDS 500 MG in SODIUM CHLORIDE 0.9% 100 ML 100 ML IV SCH ×2 (03:57→15:56)
[2017-04-25] MEDS: SODIUM CHLORIDE 0.9% 1000ML 1,000 ML IV SCH ×2 (04:00→14:31)
[2017-04-25] MEDS ORDERED: CLONAZEPAM 0.5 MG TAB PO PRN (04:12)
[2017-04-25] MEDS ORDERED: PRAMIPEXOLE DIHYDROCHLORIDE 0.5 MG PO PRN (04:12)
[2017-04-25] MEDS ORDERED: PRAMIPEXOLE DIHYDROCHLORIDE 0.25 MG TAB PO PRN (04:30)
[2017-04-25] MEDS ORDERED: PIPERACILLIN/TAZOBACT 3.375 GM PDS IV ONE ×4 (04:40→21:13)
[2017-04-25] MEDS ORDERED: SODIUM CHLORIDE 0.9% 100 ML 100 ML IV ONE ×5 (04:40→21:13)
[2017-04-25] MEDS: PIPERACILLIN/TAZOBACT 3.375 GM 3.375 GM in SODIUM CHLORIDE 0.9% 100 ML 100 ML IV SCH ×4 (04:59→21:47)
[2017-04-25] MEDS: HYDROMORPHONE 1 MG/ML SYRINGE IV PRN ×4 (06:56→18:24)
[2017-04-25] MEDS: ONDANSETRON HCL 4 MG/2 ML SOL IV PRN ×2 (08:24→14:27)
[2017-04-25] MEDS ORDERED: LISINOPRIL 2.5 MG PO SCH (09:00)
[2017-04-25] MEDS ORDERED: OMEPRAZOLE 20 MG CAPSULE PO SCH (09:00)
[2017-04-25] MEDS: OXYCODONE HYDROCHLORIDE 5 MG TAB PO PRN ×3 (09:22→18:23)
[2017-04-25] MEDS: URSODIOL 300 MG CAP PO SCH ×3 (09:23→20:52)
[2017-04-25] MEDS: PANTOPRAZOLE SODIUM 40 MG ECT PO SCH (09:24)
[2017-04-25] MEDS: CITALOPRAM 20 MG TAB PO SCH (09:25)
[2017-04-25] MEDS: LISINOPRIL 5 MG TAB PO SCH (09:26)
[2017-04-25] MEDS: CLONAZEPAM 0.5 MG TAB PO SCH ×2 (09:30→20:52)
[2017-04-25] MEDS: WARFARIN SODIUM 3 MG TAB PO SCH (18:23)
[2017-04-25] MEDS: TRAZODONE HYDROCHLORIDE 50 MG TAB PO SCH (20:51)
[2017-04-25] MEDS: LEVODOPA PO SCH (20:51)
[2017-04-25] MEDS: [UNRECOGNIZED DRUG - OTHER] PO SCH (20:51)
[2017-04-25] MEDS: ZOLPIDEM TARTRATE 5 MG TAB PO SCH (20:51)
[2017-04-25] MEDS: CARBIDOPA PO SCH (20:51)
[2017-04-25] MEDS: MIRTAZAPINE 15 MG TAB PO SCH (20:52)
[2017-04-25] MEDS: ATORVASTATIN 10 MG TAB PO SCH (20:52)
[2017-04-25] MEDS ORDERED: TRAZODONE HCL 100 MG PO SCH (21:00)
[2017-04-26] MEDS: OXYCODONE HYDROCHLORIDE 5 MG TAB PO PRN ×6 (01:36→21:59)
[2017-04-26] MEDS: SODIUM CHLORIDE 0.9% 1000ML 1,000 ML IV SCH (01:37)
[2017-04-26] MEDS: SODIUM CHLORIDE 0.9% FLUSH 10 ML SOL IV PRN ×5 (01:37→22:00)
[2017-04-26] MEDS: HYDROMORPHONE 1 MG/ML SYRINGE IV PRN ×5 (01:37→21:57)
[2017-04-26] MEDS ORDERED: VANCOMYCIN HYDROCHLORIDE 500 MG PDS IV ONE ×2 (03:08→15:17)
[2017-04-26] MEDS ORDERED: SODIUM CHLORIDE 0.9% 100 ML 100 ML IV ONE ×6 (03:08→20:46)
[2017-04-26] MEDS: VANCOMYCIN HCL 500 MG PDS 500 MG in SODIUM CHLORIDE 0.9% 100 ML 100 ML IV SCH ×2 (03:24→15:30)
[2017-04-26] MEDS ORDERED: PIPERACILLIN/TAZOBACT 3.375 GM PDS IV ONE ×4 (04:31→20:46)
[2017-04-26] MEDS: PIPERACILLIN/TAZOBACT 3.375 GM 3.375 GM in SODIUM CHLORIDE 0.9% 100 ML 100 ML IV SCH ×4 (04:44→22:13)
[2017-04-26] MEDS: CITALOPRAM 20 MG TAB PO SCH (08:44)
[2017-04-26] MEDS: PANTOPRAZOLE SODIUM 40 MG ECT PO SCH (08:44)
[2017-04-26] MEDS: LISINOPRIL 5 MG TAB PO SCH (08:45)
[2017-04-26] MEDS: ONDANSETRON HCL 4 MG/2 ML SOL IV PRN ×2 (08:55→21:59)
[2017-04-26] MEDS: CLONAZEPAM 0.5 MG TAB PO SCH ×2 (08:55→21:55)
[2017-04-26] MEDS: ACETAMINOPHEN 325 MG PO PRN (12:20)
[2017-04-26] MEDS: WARFARIN SODIUM 3 MG TAB PO SCH (17:06)
[2017-04-26] MEDS: ZOLPIDEM TARTRATE 5 MG TAB PO SCH (21:53)
[2017-04-26] MEDS: CARBIDOPA PO SCH (21:54)
[2017-04-26] MEDS: TRAZODONE HYDROCHLORIDE 50 MG TAB PO SCH (21:54)
[2017-04-26] MEDS: [UNRECOGNIZED DRUG - OTHER] PO SCH (21:54)
[2017-04-26] MEDS: LEVODOPA PO SCH (21:54)
[2017-04-26] MEDS: ATORVASTATIN 10 MG TAB PO SCH (21:55)
[2017-04-26] MEDS: MIRTAZAPINE 15 MG TAB PO SCH (21:56)
[2017-04-27] MEDS: VANCOMYCIN HCL 500 MG PDS 500 MG in SODIUM CHLORIDE 0.9% 100 ML 100 ML IV SCH ×2 (02:55→15:25)
[2017-04-27] MEDS: SODIUM CHLORIDE 0.9% FLUSH 10 ML SOL IV PRN ×8 (02:56→19:55)
[2017-04-27] MEDS: OXYCODONE HYDROCHLORIDE 5 MG TAB PO PRN ×3 (03:11→16:54)
[2017-04-27] MEDS: HYDROMORPHONE 1 MG/ML SYRINGE IV PRN ×3 (03:12→16:54)
[2017-04-27] MEDS ORDERED: PIPERACILLIN/TAZOBACT 3.375 GM PDS IV ONE (03:34)
[2017-04-27] MEDS: PIPERACILLIN/TAZOBACT 3.375 GM 3.375 GM in SODIUM CHLORIDE 0.9% 100 ML 100 ML IV SCH (03:59)
[2017-04-27] MEDS: ACETAMINOPHEN 325 MG PO PRN (06:50)
[2017-04-27 07:30] LABS: CALCIUM 7.9 mg/dl (8.5-10.1); POTASSIUM 4.4 mMol/L (3.5-5.1)
[2017-04-27] MEDS ORDERED: CEFEPIME HYDROCHLORIDE 2 GM PDS IV SCH (07:30)
[2017-04-27 07:32] LABS: BASOPHILS % (AUTO) 1 % (0-3); EOSINOPHILS % (AUTO) 6 % (0-9); HEMATOCRIT 27 % (35-47); MONOCYTES % (AUTO) 6.3 % (0-12); NEUTROPHILS % (AUTO) 55.2 % (37-80)
[2017-04-27 07:34] LABS: MEAN CORPUSCULAR VOLUME 81 fL (81-99)
[2017-04-27] MEDS: CEFEPIME HYDROCHLORIDE 2 GM PDS IV SCH ×2 (08:03→19:55)
[2017-04-27] MEDS: PANTOPRAZOLE SODIUM 40 MG ECT PO SCH (08:10)
[2017-04-27] MEDS: LISINOPRIL 5 MG TAB PO SCH (08:11)
[2017-04-27] MEDS: CITALOPRAM 20 MG TAB PO SCH (08:11)
[2017-04-27] MEDS: CLONAZEPAM 0.5 MG TAB PO SCH ×2 (08:11→21:18)
[2017-04-27] MEDS: WARFARIN SODIUM 3 MG TAB PO SCH (18:08)
[2017-04-27] MEDS: LEVODOPA PO SCH (21:12)
[2017-04-27] MEDS: CARBIDOPA PO SCH (21:12)
[2017-04-27] MEDS: [UNRECOGNIZED DRUG - OTHER] PO SCH (21:12)
[2017-04-27] MEDS: TRAZODONE HYDROCHLORIDE 50 MG TAB PO SCH (21:12)
[2017-04-27] MEDS: ATORVASTATIN 10 MG TAB PO SCH (21:13)
[2017-04-27] MEDS: MIRTAZAPINE 15 MG TAB PO SCH (21:14)
[2017-04-27] MEDS: ZOLPIDEM TARTRATE 5 MG TAB PO SCH (21:18)
[2017-04-28] MEDS ORDERED: VANCOMYCIN HYDROCHLORIDE 500 MG PDS IV ONE ×2 (02:38→15:15)
[2017-04-28] MEDS: SODIUM CHLORIDE 0.9% FLUSH 10 ML SOL IV PRN ×4 (02:51→21:30)
[2017-04-28] MEDS: HYDROMORPHONE 1 MG/ML SYRINGE IV PRN (02:51)
[2017-04-28] MEDS: OXYCODONE HYDROCHLORIDE 5 MG TAB PO PRN ×4 (02:51→19:56)
[2017-04-28] MEDS: VANCOMYCIN HCL 500 MG PDS 500 MG in SODIUM CHLORIDE 0.9% 100 ML 100 ML IV SCH ×2 (02:52→15:20)
[2017-04-28] MEDS: CEFEPIME HYDROCHLORIDE 2 GM PDS IV SCH (08:15)
[2017-04-28 08:24] LABS: POTASSIUM 4.3 mMol/L (3.5-5.1)
[2017-04-28 08:30] LABS: BASOPHILS % (AUTO) 1 % (0-3); EOSINOPHILS % (AUTO) 11 % (0-9); HEMATOCRIT 25 % (35-47); MEAN CORPUSCULAR HGB CONC 33.9 gm/dl (32.0-36.0); MEAN CORPUSCULAR VOLUME 82 fL (81-99); MONOCYTES % (AUTO) 9.2 % (0-12); NEUTROPHILS % (AUTO) 45.5 % (37-80)
[2017-04-28] MEDS: LISINOPRIL 5 MG TAB PO SCH (09:02)
[2017-04-28] MEDS: PANTOPRAZOLE SODIUM 40 MG ECT PO SCH (09:02)
[2017-04-28] MEDS: CITALOPRAM 20 MG TAB PO SCH (09:03)
[2017-04-28] MEDS: CLONAZEPAM 0.5 MG TAB PO SCH ×2 (09:05→21:28)
[2017-04-28] MEDS: TRAMADOL HYDROCHLORIDE 50 MG TAB PO PRN ×2 (13:49→19:56)
[2017-04-28] MEDS: WARFARIN SODIUM 3 MG TAB PO SCH (18:29)
[2017-04-28] MEDS ORDERED: CEFEPIME HYDROCHLORIDE 2 GM in SODIUM CHLORIDE 0.9% 100 ML 100 ML IV SCH (19:00)
[2017-04-28] MEDS: ATORVASTATIN 10 MG TAB PO SCH (21:28)
[2017-04-28] MEDS: TRAZODONE HYDROCHLORIDE 50 MG TAB PO SCH (21:28)
[2017-04-28] MEDS: LEVODOPA PO SCH (21:28)
[2017-04-28] MEDS: CARBIDOPA PO SCH (21:28)
[2017-04-28] MEDS: ZOLPIDEM TARTRATE 5 MG TAB PO SCH (21:28)
[2017-04-28] MEDS: [UNRECOGNIZED DRUG - OTHER] PO SCH (21:28)
[2017-04-28] MEDS: MIRTAZAPINE 15 MG TAB PO SCH (21:29)
[2017-04-29] MEDS ORDERED: VANCOMYCIN HYDROCHLORIDE 500 MG PDS IV ONE ×2 (02:41→15:10)
[2017-04-29] MEDS: OXYCODONE HYDROCHLORIDE 5 MG TAB PO PRN ×4 (03:02→21:18)
[2017-04-29] MEDS: SODIUM CHLORIDE 0.9% FLUSH 10 ML SOL IV PRN ×4 (03:03→15:21)
[2017-04-29] MEDS: TRAMADOL HYDROCHLORIDE 50 MG TAB PO PRN ×4 (03:03→21:18)
[2017-04-29] MEDS: VANCOMYCIN HCL 500 MG PDS 500 MG in SODIUM CHLORIDE 0.9% 100 ML 100 ML IV SCH ×2 (03:03→15:20)
[2017-04-29 07:12] LABS: BASOPHILS % (AUTO) 1 % (0-3); EOSINOPHILS % (AUTO) 8 % (0-9); HEMATOCRIT 25 % (35-47); MEAN CORPUSCULAR HGB CONC 32.9 gm/dl (32.0-36.0); NEUTROPHILS % (AUTO) 51.8 % (37-80)
[2017-04-29 07:14] LABS: MEAN CORPUSCULAR VOLUME 81 fL (81-99)
[2017-04-29 07:15] LABS: CALCIUM 8.1 mg/dl (8.5-10.1); POTASSIUM 4.1 mMol/L (3.5-5.1)
[2017-04-29] MEDS: PANTOPRAZOLE SODIUM 40 MG ECT PO SCH (08:21)
[2017-04-29] MEDS: LISINOPRIL 5 MG TAB PO SCH (08:21)
[2017-04-29] MEDS: CEFEPIME HYDROCHLORIDE 2 GM in SODIUM CHLORIDE 0.9% 100 ML 100 ML IV SCH (08:21)
[2017-04-29] MEDS: CLONAZEPAM 0.5 MG TAB PO SCH ×2 (08:21→21:25)
[2017-04-29] MEDS: CITALOPRAM 20 MG TAB PO SCH (08:22)
[2017-04-29] MEDS ORDERED: SODIUM CHLORIDE 0.9% 100 ML 100 ML IV ONE (15:11)
[2017-04-29] MEDS: WARFARIN SODIUM 3 MG TAB PO SCH (18:04)
[2017-04-29] MEDS: [UNRECOGNIZED DRUG - OTHER] PO SCH (21:19)
[2017-04-29] MEDS: CARBIDOPA PO SCH (21:19)
[2017-04-29] MEDS: LEVODOPA PO SCH (21:19)
[2017-04-29] MEDS: TRAZODONE HYDROCHLORIDE 50 MG TAB PO SCH (21:19)
[2017-04-29] MEDS: ATORVASTATIN 10 MG TAB PO SCH (21:20)
[2017-04-29] MEDS: MIRTAZAPINE 15 MG TAB PO SCH (21:20)
[2017-04-29] MEDS: ZOLPIDEM TARTRATE 5 MG TAB PO SCH (21:25)
[2017-04-30] MEDS ORDERED: VANCOMYCIN HYDROCHLORIDE 500 MG PDS IV ONE (03:33)
[2017-04-30] MEDS ORDERED: SODIUM CHLORIDE 0.9% 100 ML 100 ML IV ONE (03:33)
[2017-04-30] MEDS: VANCOMYCIN HCL 500 MG PDS 500 MG in SODIUM CHLORIDE 0.9% 100 ML 100 ML IV SCH (03:42)
[2017-04-30] MEDS: OXYCODONE HYDROCHLORIDE 5 MG TAB PO PRN ×2 (03:49→10:02)
[2017-04-30] MEDS: TRAMADOL HYDROCHLORIDE 50 MG TAB PO PRN ×2 (03:49→10:01)
[2017-04-30 07:12] LABS: POTASSIUM 3.9 mMol/L (3.5-5.1)
[2017-04-30 07:16] LABS: BASOPHILS % (AUTO) 1 % (0-3); EOSINOPHILS % (AUTO) 7 % (0-9); HEMATOCRIT 26 % (35-47); MEAN CORPUSCULAR HGB CONC 33.6 gm/dl (32.0-36.0); MONOCYTES % (AUTO) 9.3 % (0-12); NEUTROPHILS % (AUTO) 48.8 % (37-80)
[2017-04-30 07:19] LABS: MEAN CORPUSCULAR VOLUME 80 fL (81-99)
[2017-04-30 08:06] VITALS: TEMP 97; O2SAT 92
[2017-04-30] MEDS: CITALOPRAM 20 MG TAB PO SCH (08:13)
[2017-04-30] MEDS: LISINOPRIL 5 MG TAB PO SCH (08:14)
[2017-04-30] MEDS: PANTOPRAZOLE SODIUM 40 MG ECT PO SCH (08:14)
[2017-04-30] MEDS: CLONAZEPAM 0.5 MG TAB PO SCH (08:14)
[2017-04-30] MEDS: CEFEPIME HYDROCHLORIDE 2 GM in SODIUM CHLORIDE 0.9% 100 ML 100 ML IV SCH (08:16)
[2017-04-30] MEDS: SODIUM CHLORIDE 0.9% FLUSH 10 ML SOL IV PRN ×2 (08:17→10:02)
[2017-04-30 08:25] VITALS: PULSE 73; RESP 18
[2017-04-30] MEDS ORDERED: LISINOPRIL 5 MG TAB PO SCH (09:01)
[2017-04-30 10:01] VITALS: BP 157/62
== END 2017-04-30 10:45 | disposition home or self-care (01) | DRG 394 ==
LOC: ED 00:45 → ACUTE CARE 04:04 → OBSVTOIN 04:04
PROVIDERS: ADMIT Family Medicine; ATTEND Family Medicine
DX: K94.12 Enterostomy infection (principal); L02.818 Cutaneous abscess of other sites; I10 Essential (primary) hypertension; Z79.01 Long term (current) use of anticoagulants
CPT/HCPCS: 36415; 36591; 74150; 74176; 80048; 80053; 81001; 82150; 84484; 85025; 85610; 85730; 87040; 93005; 94150; 96365; 96374; 96375; 99070; 99222; 99232; 99285; J0692; J1644; J2405; J2543; J3370; J1170

== ENCOUNTER 2017-07-10 13:11 | Inpatient (IN) | payer MEDICARE, BC ==
[2017-07-10] MEDS ORDERED: HYDROMORPHONE HCL 2 MG/ML SOL IV ONE ×3 (13:26→17:23)
[2017-07-10] MEDS ORDERED: ONDANSETRON HCL 4 MG/2 ML 4 MG in SODIUM CHLORIDE 0.9% 100 ML 100 ML IV ONE ×2 (13:27→19:14)
[2017-07-10] MEDS ORDERED: ONDANSETRON HCL 4 MG/2 ML SOL ONE ×2 (13:43→19:18)
[2017-07-10] MEDS ORDERED: HYDROMORPHONE 1 MG/ML SYRINGE ONE ×3 (13:43→17:39)
[2017-07-10] MEDS ORDERED: SODIUM CHLORIDE 0.9% 1000ML 1,000 ML IV ONE (13:47)
[2017-07-10] MEDS ORDERED: DIPHENHYDRAMINE 50 MG/ML SOL IV ONE ×2 (13:56→19:14)
[2017-07-10] MEDS ORDERED: DIPHENHYDRAMINE 50 MG/ML SOL ONE ×2 (14:07→19:17)
[2017-07-10] MEDS ORDERED: HEPARIN 500 Unit PRE-FILL 100 U/ML SOL IV PRN (14:55)
[2017-07-10 18:04] LABS: ALBUMIN 2.7 gm/dl (3.4-5.0); CALCIUM 7.6 mg/dl (8.5-10.1); POTASSIUM 3.9 mMol/L (3.5-5.1)
[2017-07-10] MEDS ORDERED: ONDANSETRON HCL 4 MG/2 ML SOL IV ONE (19:17)
[2017-07-10] MEDS: SODIUM CHLORIDE 0.9% FLUSH 10 ML SOL IV PRN ×2 (19:44→21:53)
[2017-07-10] MEDS ORDERED: MONTELUKAST SODIUM 10 MG TAB PO PRN (20:01)
[2017-07-10] MEDS ORDERED: FLUTICASONE PROPIONATE SPR NAS PRN (20:01)
[2017-07-10] MEDS ORDERED: Non-Formulary Medication MISC (Budesonide/Formoterol 160/4.5 1 PUFF) INH PRN (20:01)
[2017-07-10] MEDS ORDERED: FUROSEMIDE 20 MG TAB PO PRN (20:01)
[2017-07-10] MEDS ORDERED: ONDANSETRON HCL 4 MG/2 ML 4 MG in SODIUM CHLORIDE 0.9% 100 ML 100 ML IV PRN (20:15)
[2017-07-10] MEDS ORDERED: ATORVASTATIN 10 MG TAB PO SCH (21:00)
[2017-07-10] MEDS: CLONAZEPAM 0.5 MG TAB PO SCH (21:52)
[2017-07-10] MEDS: TRAZODONE HYDROCHLORIDE 50 MG TAB PO SCH (21:52)
[2017-07-10] MEDS: BUDESONIDE 0.5 MG/2 ML AMPUL.NEB INH SCH (21:53)
[2017-07-10] MEDS: HYDROMORPHONE 1 MG/ML SYRINGE IV PRN (21:53)
[2017-07-10] MEDS: DIPHENHYDRAMINE 50 MG/ML SOL IV PRN (21:59)
[2017-07-10] MEDS: SODIUM CHLORIDE 0.9% 1000ML 1,000 ML IV SCH (21:59)
[2017-07-11] MEDS: ONDANSETRON HCL 4 MG/2 ML SOL IV PRN ×3 (01:33→19:24)
[2017-07-11] MEDS: SODIUM CHLORIDE 0.9% FLUSH 10 ML SOL IV PRN ×3 (01:33→12:31)
[2017-07-11] MEDS: HYDROMORPHONE 1 MG/ML SYRINGE IV PRN ×5 (01:33→19:26)
[2017-07-11] MEDS: DIPHENHYDRAMINE 50 MG/ML SOL IV PRN ×3 (06:47→19:25)
[2017-07-11] MEDS ORDERED: OMEPRAZOLE 20 MG CAPSULE PO SCH (07:00)
[2017-07-11] MEDS: SODIUM CHLORIDE 0.9% 1000ML 1,000 ML IV SCH (08:21)
[2017-07-11] MEDS: BUDESONIDE 0.5 MG/2 ML AMPUL.NEB INH SCH ×2 (08:23→21:07)
[2017-07-11] MEDS: DEXTROSE/SALINE 0.45%/KCL10MEQ 1,000 ML/1,000 ML SOL IV SCH ×3 (08:31→21:36)
[2017-07-11] MEDS: PANTOPRAZOLE SODIUM 40 MG/10 ML PDS IV SCH (08:37)
[2017-07-11] MEDS: CLONAZEPAM 0.5 MG TAB PO SCH ×2 (08:37→21:53)
[2017-07-11] MEDS: CITALOPRAM 20 MG TAB PO SCH (08:37)
[2017-07-11] MEDS ORDERED: ENOXAPARIN 30 MG SOL SC SCH (09:00)
[2017-07-11] MEDS ORDERED: FLUTICASONE IH SCH (09:00)
[2017-07-11] MEDS ORDERED: SALMETEROL IH SCH (09:00)
[2017-07-11] MEDS ORDERED: PANTOPRAZOLE SODIUM 40 MG ECT PO SCH (09:00)
[2017-07-11] MEDS: LEVODOPA PO SCH ×2 (10:05→21:07)
[2017-07-11] MEDS: CARBIDOPA PO SCH ×2 (10:05→21:07)
[2017-07-11] MEDS: [UNRECOGNIZED DRUG - OTHER] PO SCH ×2 (10:05→21:07)
[2017-07-11] MEDS ORDERED: ENOXAPARIN 40 MG SOL SC ONE (19:59)
[2017-07-11] MEDS: TRAZODONE HYDROCHLORIDE 50 MG TAB PO SCH (21:07)
[2017-07-12] MEDS: ONDANSETRON HCL 4 MG/2 ML SOL IV PRN ×4 (00:04→17:36)
[2017-07-12] MEDS: HYDROMORPHONE 1 MG/ML SYRINGE IV PRN ×6 (00:04→21:46)
[2017-07-12] MEDS: DIPHENHYDRAMINE 50 MG/ML SOL IV PRN ×3 (02:20→15:18)
[2017-07-12] MEDS: DEXTROSE/SALINE 0.45%/KCL10MEQ 1,000 ML/1,000 ML SOL IV SCH ×3 (04:22→17:38)
[2017-07-12 07:30] LABS: CALCIUM 6.8 mg/dl (8.5-10.1); POTASSIUM 3.9 mMol/L (3.5-5.1)
[2017-07-12 07:34] LABS: BASOPHILS % (AUTO) 1 % (0-3); EOSINOPHILS % (AUTO) 2 % (0-9); HEMATOCRIT 27 % (35-47); MEAN CORPUSCULAR HGB CONC 32.4 gm/dl (32.0-36.0); MEAN CORPUSCULAR VOLUME 84 fL (81-99); MONOCYTES % (AUTO) 7.3 % (0-12); NEUTROPHILS % (AUTO) 55.8 % (37-80)
[2017-07-12] MEDS: BUDESONIDE 0.5 MG/2 ML AMPUL.NEB INH SCH ×2 (09:10→20:09)
[2017-07-12] MEDS: CITALOPRAM 20 MG TAB PO SCH (09:15)
[2017-07-12] MEDS: PANTOPRAZOLE SODIUM 40 MG/10 ML PDS IV SCH (09:16)
[2017-07-12] MEDS: CLONAZEPAM 0.5 MG TAB PO SCH ×2 (09:16→21:03)
[2017-07-12] MEDS ORDERED: HYDROMORPHONE 1 MG/ML SYRINGE IV ONE (17:01)
[2017-07-12] MEDS: LEVODOPA PO SCH (21:00)
[2017-07-12] MEDS: TRAZODONE HYDROCHLORIDE 50 MG TAB PO SCH (21:00)
[2017-07-12] MEDS: [UNRECOGNIZED DRUG - OTHER] PO SCH (21:00)
[2017-07-12] MEDS: CARBIDOPA PO SCH (21:00)
[2017-07-13] MEDS: HYDROMORPHONE 1 MG/ML SYRINGE IV PRN ×4 (02:44→14:37)
[2017-07-13] MEDS: DIPHENHYDRAMINE 50 MG/ML SOL IV PRN ×2 (02:45→11:08)
[2017-07-13 02:54] VITALS: RESP 14
[2017-07-13] MEDS: DEXTROSE/SALINE 0.45%/KCL10MEQ 1,000 ML/1,000 ML SOL IV SCH ×3 (07:47→14:20)
[2017-07-13 07:58] LABS: BASOPHILS % (AUTO) 1 % (0-3); EOSINOPHILS % (AUTO) 2 % (0-9); HEMATOCRIT 26 % (35-47); MEAN CORPUSCULAR HGB CONC 33.2 gm/dl (32.0-36.0); MEAN CORPUSCULAR VOLUME 84 fL (81-99); NEUTROPHILS % (AUTO) 58.2 % (37-80)
[2017-07-13 08:04] LABS: CALCIUM 7.1 mg/dl (8.5-10.1); POTASSIUM 3.9 mMol/L (3.5-5.1)
[2017-07-13] MEDS: PANTOPRAZOLE SODIUM 40 MG/10 ML PDS IV SCH (08:14)
[2017-07-13] MEDS: BUDESONIDE 0.5 MG/2 ML AMPUL.NEB INH SCH (08:14)
[2017-07-13] MEDS: CITALOPRAM 20 MG TAB PO SCH (08:14)
[2017-07-13] MEDS: CLONAZEPAM 0.5 MG TAB PO SCH (08:14)
[2017-07-13 10:04] VITALS: BP 152/72; PULSE 68; TEMP 98.5; O2SAT 94
[2017-07-13] MEDS: SODIUM CHLORIDE 0.9% FLUSH 10 ML SOL IV PRN (11:08)
[2017-07-13] MEDS ORDERED: WARFARIN SODIUM 3 MG TAB PO SCH (20:01)
== END 2017-07-13 15:10 | disposition short-term general hospital (02) | DRG 390 ==
LOC: ED 13:11 → ACUTE CARE 19:44 → UNDOADMOB 19:44 → ACUTE CARE 20:05 → OBSVTOIN 07-11 08:30
PROVIDERS: ADMIT Emergency Medicine; ATTEND Emergency Medicine
DX: K56.60 Unspecified intestinal obstruction (principal); F41.9 Anxiety disorder, unspecified; G89.29 Other chronic pain; Z79.899 Other long term (current) drug therapy; Z79.01 Long term (current) use of anticoagulants
CPT/HCPCS: 71010; 80048; 80053; 82150; 82550; 85025; 85610; 94762; 96365; 96374; 96375; 99218; 99285; J1200; J1650; J2405; J1170

== ENCOUNTER 2017-08-20 17:49 | Inpatient (IN) | payer MEDICARE, BC ==
[2017-08-20] MEDS ORDERED: HYDROMORPHONE HCL 2 MG/ML SOL IV ONE ×2 (18:23→19:43)
[2017-08-20] MEDS ORDERED: ONDANSETRON HCL 4 MG/2 ML SOL IV ONE (18:23)
[2017-08-20] MEDS ORDERED: HYDROMORPHONE HCL 2 MG/ML SOL ONE ×2 (18:25→20:08)
[2017-08-20] MEDS ORDERED: ONDANSETRON HCL 4 MG/2 ML SOL ONE (18:25)
[2017-08-20 18:30] LABS: APPEARANCE,URINE Clear; BILIRUBIN,URINE NEGATIVE (NEGATIVE); COLOR,URINE Yellow; GLUCOSE, URINE (UA) NEGATIVE (NEGATIVE); KETONES,URINE NEGATIVE (NEGATIVE); LEUKOCYTE ESTERASE ,URINE NEGATIVE (NEGATIVE); NITRATE,URINE NEGATIVE (NEGATIVE); OCCULT BLOOD,URINE NEGATIVE (NEG-TRACE); UROBILINOGEN,URINE 0.2 (0.2-1.0 EU)
[2017-08-20 18:30] LABS: BASOPHILS % (AUTO) 1 % (0-3); EOSINOPHILS % (AUTO) 2 % (0-9); HEMATOCRIT 30 % (35-47); MEAN CORPUSCULAR HGB CONC 33.7 gm/dl (32.0-36.0); NEUTROPHILS % (AUTO) 59.2 % (37-80)
[2017-08-20 18:33] LABS: MEAN CORPUSCULAR VOLUME 81 fL (81-99)
[2017-08-20 18:40] LABS: ALBUMIN 3.1 gm/dl (3.4-5.0); CALCIUM 7.9 mg/dl (8.5-10.1); POTASSIUM 4.2 mMol/L (3.5-5.1)
[2017-08-20] MEDS ORDERED: HEPARIN 500 Unit PRE-FILL 100 U/ML SOL IV PRN (18:43)
[2017-08-20] MEDS ORDERED: SODIUM CHLORIDE 0.9% 50 ML 25 ML IV PRN (18:48)
[2017-08-20 18:49] LABS: RBC,URINE 0-2 (0-3AV/HPF); WBC,URINE 0-1 (0-5AV/HPF)
[2017-08-20] MEDS: SODIUM CHLORIDE 0.9% FLUSH 10 ML SOL IV PRN ×2 (20:09→20:20)
[2017-08-20] MEDS ORDERED: DIPHENHYDRAMINE 50 MG/ML SOL IV ONE (20:15)
[2017-08-20] MEDS ORDERED: DIPHENHYDRAMINE 50 MG/ML SOL ONE (20:17)
[2017-08-20] MEDS ORDERED: HYDROMORPHONE 1 MG/ML SYRINGE IV PRN (21:11)
[2017-08-20] MEDS ORDERED: NALOXONE HYDROCHLORIDE 0.4 MG/ML SOL IV PRN (21:11)
[2017-08-20] MEDS ORDERED: SODIUM CHLORIDE 0.45% 1000 ML 1,000 ML with POTASSIUM CHLORIDE 2 MEQ/ML 20 MEQ IV ONE (21:11)
[2017-08-20] MEDS ORDERED: Non-Formulary Medication MISC (Budesonide/Formoterol 160/4.5 1 PUFF) INH PRN (21:14)
[2017-08-20] MEDS ORDERED: CLONAZEPAM 0.5 MG TAB PO PRN (21:14)
[2017-08-20] MEDS ORDERED: Non-Formulary Medication MISC (Fluticasone Propionate 1 SPR) NAS PRN (21:14)
[2017-08-20] MEDS ORDERED: BUDESONIDE INH PRN (21:14)
[2017-08-20] MEDS ORDERED: MONTELUKAST SODIUM 10 MG TAB PO PRN (21:14)
[2017-08-20] MEDS ORDERED: FUROSEMIDE 20 MG TAB PO PRN (21:14)
[2017-08-20] MEDS ORDERED: WARFARIN SODIUM 3 MG TAB PO SCH (21:15)
[2017-08-20] MEDS ORDERED: POTASSIUM CHLORIDE 2 MEQ/ML SOL IV ONE (22:09)
[2017-08-20] MEDS ORDERED: LIDOCAINE HCL 1% MPF SOL ONE (22:10)
[2017-08-20] MEDS: OXYCODONE HYDROCHLORIDE 5 MG TAB PO PRN (22:30)
[2017-08-21] MEDS: OXYCODONE HYDROCHLORIDE 5 MG TAB PO PRN ×3 (01:50→08:20)
[2017-08-21] MEDS: SODIUM CHLORIDE 0.9% FLUSH 10 ML SOL IV PRN ×4 (03:09→19:18)
[2017-08-21] MEDS ORDERED: OMEPRAZOLE 20 MG CAPSULE PO SCH (07:00)
[2017-08-21 07:16] LABS: BASOPHILS % (AUTO) 1 % (0-3); CALCIUM 7.7 mg/dl (8.5-10.1); EOSINOPHILS % (AUTO) 2 % (0-9); HEMATOCRIT 28 % (35-47); MEAN CORPUSCULAR HGB CONC 33.7 gm/dl (32.0-36.0); MEAN CORPUSCULAR VOLUME 82 fL (81-99); MONOCYTES % (AUTO) 9.4 % (0-12); NEUTROPHILS % (AUTO) 50.9 % (37-80); POTASSIUM 4.2 mMol/L (3.5-5.1)
[2017-08-21] MEDS ORDERED: ONDANSETRON HCL 4 MG/2 ML SOL IV PRN (07:18)
[2017-08-21] MEDS ORDERED: ENOXAPARIN 40 MG SOL SC SCH (09:00)
[2017-08-21] MEDS ORDERED: HYDROMORPHONE HCL 2 MG/ML SOL IV PRN (09:15)
[2017-08-21] MEDS ORDERED: BUDESONIDE/FORMOTEROL 160/4.5 AER INH PRN (09:15)
[2017-08-21] MEDS ORDERED: FLUTICASONE PROPIONATE SPR NAS PRN (09:15)
[2017-08-21] MEDS: CITALOPRAM 20 MG TAB PO SCH (09:45)
[2017-08-21] MEDS: PANTOPRAZOLE SODIUM 40 MG ECT PO SCH (09:53)
[2017-08-21] MEDS: DIPHENHYDRAMINE 50 MG/ML SOL IV PRN ×3 (09:55→19:18)
[2017-08-21] MEDS: CLONAZEPAM 0.5 MG TAB PO SCH ×2 (10:57→20:26)
[2017-08-21] MEDS ORDERED: HYDROMORPHONE HYDROCHLORIDE 2 MG TAB PO ONE (11:05)
[2017-08-21] MEDS: WARFARIN SODIUM 3 MG TAB PO SCH (17:56)
[2017-08-21] MEDS: HYDROMORPHONE HYDROCHLORIDE 2 MG TAB PO PRN (18:05)
[2017-08-21] MEDS: LEVODOPA PO SCH (20:25)
[2017-08-21] MEDS: [UNRECOGNIZED DRUG - OTHER] PO SCH (20:25)
[2017-08-21] MEDS: CARBIDOPA PO SCH (20:25)
[2017-08-21] MEDS: TRAZODONE HYDROCHLORIDE 50 MG TAB PO SCH (20:25)
[2017-08-21] MEDS: ATORVASTATIN 10 MG TAB PO SCH (20:26)
[2017-08-22] MEDS: HYDROMORPHONE HYDROCHLORIDE 2 MG TAB PO PRN ×5 (00:36→20:17)
[2017-08-22] MEDS: ACETAMINOPHEN 325 MG PO PRN (02:22)
[2017-08-22] MEDS: ONDANSETRON 4 MG ODT BU PRN ×2 (02:23→17:08)
[2017-08-22] MEDS: PANTOPRAZOLE SODIUM 40 MG ECT PO SCH (08:49)
[2017-08-22] MEDS: CITALOPRAM 20 MG TAB PO SCH (08:49)
[2017-08-22] MEDS: CLONAZEPAM 0.5 MG TAB PO SCH ×2 (08:49→21:41)
[2017-08-22] MEDS: SODIUM CHLORIDE 0.9% FLUSH 10 ML SOL IV PRN ×2 (08:50→10:55)
[2017-08-22] MEDS ORDERED: POTASSIUM CHLORIDE 2 MEQ/ML SOL IV ONE ×3 (10:47→22:08)
[2017-08-22] MEDS: SODIUM CHLORIDE 0.45% 1000 ML 1,000 ML with POTASSIUM CHLORIDE 2 MEQ/ML 20 MEQ IV SCH ×3 (10:58→22:18)
[2017-08-22] MEDS: DIPHENHYDRAMINE 25 MG/10 ML ELI PO PRN (13:42)
[2017-08-22] MEDS: WARFARIN SODIUM 3 MG TAB PO SCH (17:07)
[2017-08-22] MEDS: [UNRECOGNIZED DRUG - OTHER] PO SCH (21:40)
[2017-08-22] MEDS: LEVODOPA PO SCH (21:40)
[2017-08-22] MEDS: CARBIDOPA PO SCH (21:40)
[2017-08-22] MEDS: TRAZODONE HYDROCHLORIDE 50 MG TAB PO SCH (21:41)
[2017-08-22] MEDS: ATORVASTATIN 10 MG TAB PO SCH (21:41)
[2017-08-23] MEDS: HYDROMORPHONE HYDROCHLORIDE 2 MG TAB PO PRN ×7 (00:37→20:04)
[2017-08-23] MEDS ORDERED: POTASSIUM CHLORIDE 2 MEQ/ML SOL IV ONE (04:03)
[2017-08-23] MEDS: SODIUM CHLORIDE 0.45% 1000 ML 1,000 ML with POTASSIUM CHLORIDE 2 MEQ/ML 20 MEQ IV SCH (04:34)
[2017-08-23] MEDS: CITALOPRAM 20 MG TAB PO SCH (08:05)
[2017-08-23] MEDS: PANTOPRAZOLE SODIUM 40 MG ECT PO SCH (08:05)
[2017-08-23] MEDS: CLONAZEPAM 0.5 MG TAB PO SCH ×2 (08:05→21:28)
[2017-08-23] MEDS: ACETAMINOPHEN 325 MG PO PRN ×2 (11:59→17:24)
[2017-08-23] MEDS: WARFARIN SODIUM 3 MG TAB PO SCH (17:26)
[2017-08-23 17:45] LABS: BASOPHILS % (AUTO) 1 % (0-3); EOSINOPHILS % (AUTO) 2 % (0-9); HEMATOCRIT 28 % (35-47); MEAN CORPUSCULAR HGB CONC 33.4 gm/dl (32.0-36.0); MEAN CORPUSCULAR VOLUME 82 fL (81-99); MONOCYTES % (AUTO) 7.4 % (0-12); NEUTROPHILS % (AUTO) 68.1 % (37-80)
[2017-08-23] MEDS: [UNRECOGNIZED DRUG - OTHER] PO SCH (21:25)
[2017-08-23] MEDS: CARBIDOPA PO SCH (21:25)
[2017-08-23] MEDS: TRAZODONE HYDROCHLORIDE 50 MG TAB PO SCH (21:25)
[2017-08-23] MEDS: LEVODOPA PO SCH (21:25)
[2017-08-23] MEDS: ATORVASTATIN 10 MG TAB PO SCH (21:26)
[2017-08-24] MEDS: HYDROMORPHONE HYDROCHLORIDE 2 MG TAB PO PRN ×5 (06:22→18:47)
[2017-08-24 07:12] LABS: CALCIUM 7.9 mg/dl (8.5-10.1); POTASSIUM 4.3 mMol/L (3.5-5.1)
[2017-08-24] MEDS: ACETAMINOPHEN 325 MG PO PRN ×3 (08:47→20:58)
[2017-08-24] MEDS: PANTOPRAZOLE SODIUM 40 MG ECT PO SCH (08:47)
[2017-08-24] MEDS: CLONAZEPAM 0.5 MG TAB PO SCH ×2 (08:47→20:59)
[2017-08-24] MEDS: CITALOPRAM 20 MG TAB PO SCH (08:48)
[2017-08-24] MEDS: DIPHENHYDRAMINE 25 MG/10 ML ELI PO PRN (14:55)
[2017-08-24] MEDS: CARBIDOPA PO SCH (20:58)
[2017-08-24] MEDS: TRAZODONE HYDROCHLORIDE 50 MG TAB PO SCH (20:58)
[2017-08-24] MEDS: LEVODOPA PO SCH (20:58)
[2017-08-24] MEDS: [UNRECOGNIZED DRUG - OTHER] PO SCH (20:58)
[2017-08-24] MEDS: ATORVASTATIN 10 MG TAB PO SCH (20:59)
[2017-08-25] MEDS: HYDROMORPHONE HYDROCHLORIDE 2 MG TAB PO PRN ×2 (02:54→09:00)
[2017-08-25 07:14] LABS: BASOPHILS % (AUTO) 1 % (0-3); EOSINOPHILS % (AUTO) 3 % (0-9); HEMATOCRIT 25 % (35-47); MEAN CORPUSCULAR VOLUME 83 fL (81-99); MONOCYTES % (AUTO) 9.5 % (0-12); NEUTROPHILS % (AUTO) 60.5 % (37-80)
[2017-08-25] MEDS: CLONAZEPAM 0.5 MG TAB PO SCH (09:00)
[2017-08-25] MEDS: CITALOPRAM 20 MG TAB PO SCH (09:00)
[2017-08-25] MEDS: PANTOPRAZOLE SODIUM 40 MG ECT PO SCH (09:01)
[2017-08-25] MEDS: SODIUM CHLORIDE 0.9% FLUSH 10 ML SOL IV PRN ×2 (09:07→11:49)
[2017-08-25 09:31] VITALS: BP 148/68; PULSE 60; RESP 18; TEMP 97.9; O2SAT 90
[2017-09-03] MEDS ORDERED: WARFARIN SODIUM 3 MG TAB PO SCH (18:00)
== END 2017-08-25 12:35 | disposition home or self-care (01) | DRG 392 ==
LOC: ED 17:49 → ACUTE CARE 21:04
PROVIDERS: ADMIT Family Medicine; ATTEND Family Medicine
DX: R10.31 Right lower quadrant pain (principal); K92.1 Melena; R50.9 Fever, unspecified; Z93.2 Ileostomy status; I10 Essential (primary) hypertension; K94.19 Other complications of enterostomy; R10.32 Left lower quadrant pain; Z79.01 Long term (current) use of anticoagulants; Z86.718 Personal history of other venous thrombosis and embolism
CPT/HCPCS: 36415; 36591; 74177; 80048; 80053; 81001; 85025; 85610; 87040; 93012; 96374; 96375; 99222; 99238; 99284; 99285; J1170; J1200; J1644; J1650; J2405; J3480; J2001

== ENCOUNTER 2017-08-29 18:48 | Emergency (ER) | payer MEDICARE, BC ==
[2017-08-29 19:06] VITALS: RESP 18; TEMP 98.2
[2017-08-29] MEDS ORDERED: ONDANSETRON HCL 4 MG/2 ML SOL IV ONE (19:50)
[2017-08-29] MEDS ORDERED: HYDROMORPHONE HCL 2 MG/ML SOL IV ONE (19:50)
[2017-08-29] MEDS ORDERED: SODIUM CHLORIDE 0.9% 1000 ML SOL IV SCH (20:00)
[2017-08-29] MEDS ORDERED: ONDANSETRON HCL 4 MG/2 ML SOL ONE (20:20)
[2017-08-29] MEDS ORDERED: HYDROMORPHONE HCL 2 MG/ML SOL ONE (20:20)
[2017-08-29 20:25] LABS: BASOPHILS % (AUTO) 1 % (0-3); EOSINOPHILS % (AUTO) 2 % (0-9); HEMATOCRIT 28 % (35-47); MEAN CORPUSCULAR HGB CONC 33.5 gm/dl (32.0-36.0); MONOCYTES % (AUTO) 8.3 % (0-12); NEUTROPHILS % (AUTO) 42.4 % (37-80)
[2017-08-29 20:29] LABS: MEAN CORPUSCULAR VOLUME 81 fL (81-99)
[2017-08-29 20:35] LABS: ALBUMIN 2.9 gm/dl (3.4-5.0); CALCIUM 8.4 mg/dl (8.5-10.1); POTASSIUM 3.8 mMol/L (3.5-5.1)
[2017-08-29] MEDS ORDERED: DIPHENHYDRAMINE 25 MG CAP ONE (21:25)
[2017-08-29] MEDS ORDERED: DIPHENHYDRAMINE 25 MG CAP PO ONE (21:25)
[2017-08-29] MEDS ORDERED: HEPARIN 500 Unit PRE-FILL 100 U/ML SOL IV PRN (21:53)
[2017-08-29] MEDS ORDERED: SODIUM CHLORIDE 0.9% FLUSH 10 ML SOL IV PRN (21:53)
[2017-08-29] MEDS ORDERED: HYDROMORPHONE HYDROCHLORIDE 2 MG TAB PO ONE ×2 (22:17→22:20)
[2017-08-29] MEDS ORDERED: HEPARIN SODIUM 100 U/ML SOL IV ONE (22:24)
[2017-08-30 00:16] VITALS: BP 157/68; PULSE 57; O2SAT 92
== END 2017-08-29 22:35 | disposition home or self-care (01) | DRG 93 ==
LOC: ED 18:48
DX: G89.29 Other chronic pain (principal); R10.31 Right lower quadrant pain
CPT/HCPCS: 36591; 74020; 80053; 82150; 85025; 96374; 96375; 99284; 99285; J1170; J1644; J2405

== ENCOUNTER 2017-10-13 17:43 | Emergency (ER) | payer MEDICARE, BC ==
[2017-10-13] MEDS ORDERED: SODIUM CHLORIDE 0.9% FLUSH 10 ML SOL IV PRN (18:16)
[2017-10-13] MEDS ORDERED: ONDANSETRON HCL 4 MG/2 ML SOL IV ONE (18:16)
[2017-10-13] MEDS ORDERED: SODIUM CHLORIDE 0.9% 1000ML 1,000 ML IV ONE (18:16)
[2017-10-13] MEDS ORDERED: HYDROMORPHONE HCL 2 MG/ML SOL IV ONE ×2 (18:16→20:06)
[2017-10-13 18:23] VITALS: TEMP 97.4
[2017-10-13 18:24] LABS: BASOPHILS % (AUTO) 1 % (0-3); EOSINOPHILS % (AUTO) 3 % (0-9); HEMATOCRIT 28 % (35-47); MEAN CORPUSCULAR HGB CONC 33.6 gm/dl (32.0-36.0); MONOCYTES % (AUTO) 8.8 % (0-12); NEUTROPHILS % (AUTO) 51.8 % (37-80)
[2017-10-13] MEDS ORDERED: HYDROMORPHONE HCL 2 MG/ML SOL ONE ×2 (18:24→20:03)
[2017-10-13] MEDS ORDERED: ONDANSETRON HCL 4 MG/2 ML SOL ONE (18:24)
[2017-10-13 18:27] LABS: MEAN CORPUSCULAR VOLUME 80 fL (81-99)
[2017-10-13 18:34] LABS: ALBUMIN 2.8 gm/dl (3.4-5.0); CALCIUM 8.2 mg/dl (8.5-10.1)
[2017-10-13 18:42] LABS: APPEARANCE,URINE Clear; BILIRUBIN,URINE 1+ (NEGATIVE); COLOR,URINE Yellow; GLUCOSE, URINE (UA) NEGATIVE (NEGATIVE); KETONES,URINE TRACE (NEGATIVE); LEUKOCYTE ESTERASE ,URINE NEGATIVE (NEGATIVE); NITRATE,URINE NEGATIVE (NEGATIVE); OCCULT BLOOD,URINE TRACE INTACT (NEG-TRACE); PH,URINE 5.5; UROBILINOGEN,URINE 0.2 (0.2-1.0 EU)
[2017-10-13 19:11] LABS: ICTOTEST,URINE NEGATIVE (NEGATIVE); RBC,URINE 0-3 (0-3AV/HPF); WBC,URINE 0-4 (0-5AV/HPF)
[2017-10-13] MEDS ORDERED: PIPERACILLIN/TAZOBACT 3.375 GM PDS IV ONE (20:10)
[2017-10-13] MEDS ORDERED: PIPERACILLIN/TAZOBACT 3.375 GM 3.375 GM in SODIUM CHLORIDE 0.9% 100 ML 100 ML IV ONE (20:22)
[2017-10-13 20:26] VITALS: BP 191/87; PULSE 71; RESP 18; O2SAT 92
== END 2017-10-13 21:05 | disposition short-term general hospital (02) | DRG 395 ==
LOC: ED 17:43
DX: K63.1 Perforation of intestine (nontraumatic) (principal); Z98.890 Other specified postprocedural states
CPT/HCPCS: 36415; 36591; 74176; 80053; 81001; 82150; 85025; 85610; 99291; J1170; J2405; J2543

== ENCOUNTER 2018-01-12 17:53 | Emergency (ER) | payer MEDICARE, BC ==
[2018-01-12 18:20] VITALS: RESP 20
[2018-01-12] MEDS ORDERED: SODIUM CHLORIDE 0.9% 1000ML 1,000 ML IV ONE ×2 (18:35→22:06)
[2018-01-12] MEDS ORDERED: HYDROMORPHONE 1 MG/ML SYRINGE IV PRN (18:40)
[2018-01-12 18:59] LABS: HEMATOCRIT 24 % (35-47); MEAN CORPUSCULAR HGB CONC 31.4 gm/dl (32.0-36.0)
[2018-01-12 19:04] LABS: MEAN CORPUSCULAR VOLUME 74 fL (81-99)
[2018-01-12 19:11] LABS: ALBUMIN 2.6 gm/dl (3.4-5.0); CALCIUM 7.4 mg/dl (8.5-10.1); POTASSIUM 4.7 mMol/L (3.5-5.1)
[2018-01-12] MEDS ORDERED: HYDROMORPHONE 1 MG/ML SYRINGE ONE (19:20)
[2018-01-12] MEDS ORDERED: HEPARIN 500 Unit PRE-FILL 100 U/ML SOL IV PRN (19:27)
[2018-01-12] MEDS ORDERED: SODIUM CHLORIDE 0.9% FLUSH 10 ML SOL IV PRN (19:27)
[2018-01-12 19:35] LABS: ANISOCYTOSIS SLIGHT AMT; BASOPHILS % (MANUAL) 0 % (0-3); EOSINOPHILS % (MANUAL) 3 % (0-9); HYPOCHROMASIA PRESENT; LYMPHOCYTES % (MANUAL) 23 % (10-50)
[2018-01-12] MEDS ORDERED: HYDROMORPHONE 1 MG/ML SYRINGE IV ONE (20:27)
[2018-01-12] MEDS ORDERED: HYDROMORPHONE HCL 2 MG/ML SOL ONE (20:30)
[2018-01-12 21:35] VITALS: BP 133/43; PULSE 67; TEMP 100.1; O2SAT 97
== END 2018-01-12 23:09 | disposition short-term general hospital (02) | DRG 379 ==
LOC: ED 17:53
DX: K92.2 Gastrointestinal hemorrhage, unspecified (principal); R10.9 Unspecified abdominal pain; Z86.010 Personal history of colon polyps; R79.1 Abnormal coagulation profile
CPT/HCPCS: 36591; 71045; 74176; 80053; 82150; 85007; 85027; 85610; 87040; 87430; 87804; 96365; 96366; 96374; 99285; J1170

== ENCOUNTER 2018-02-16 18:32 | Emergency (ER) | payer MEDICARE, BC ==
[2018-02-16] MEDS ORDERED: NALOXONE HYDROCHLORIDE 0.4 MG/ML SOL ONE (18:48)
[2018-02-16] MEDS ORDERED: NALOXONE HYDROCHLORIDE 0.4 MG/ML SOL IV ONE (18:48)
[2018-02-16 19:00] VITALS: RESP 20
[2018-02-16] MEDS ORDERED: ONDANSETRON HCL 4 MG/2 ML SOL IV ONE (19:01)
[2018-02-16] MEDS ORDERED: ONDANSETRON HCL 4 MG/2 ML SOL ONE (19:05)
[2018-02-16 19:07] LABS: HEMATOCRIT 22 % (35-47); MEAN CORPUSCULAR HEMOGLOBIN 23.5 pg (27.0-32.0); MEAN CORPUSCULAR HGB CONC 30.3 gm/dl (32.0-36.0)
[2018-02-16 19:12] LABS: MEAN CORPUSCULAR VOLUME 78 fL (81-99)
[2018-02-16 19:15] LABS: HEMOGLOBIN 6.8 gm/dl (12.0-15.5)
[2018-02-16 19:16] LABS: INR 2.61 (0.86-1.12)
[2018-02-16 19:25] LABS: CALCIUM 7.7 mg/dl (8.5-10.1); CARBON DIOXIDE 25.5 mEq/L (21-32); CREATININE 2.53 mg/dl (0.60-1.00); POTASSIUM 4.4 mMol/L (3.5-5.1); TROP I 0.059 ng/ml (0.000-0.056)
[2018-02-16] MEDS ORDERED: HEPARIN 500 Unit PRE-FILL 100 U/ML SOL IV PRN (19:32)
[2018-02-16] MEDS ORDERED: HEPARIN SODIUM 100 U/ML SOL IV ONE (19:34)
[2018-02-16 19:48] LABS: BAND NEUTROPHILS % (MANUAL) 1 %; BASOPHILS % (MANUAL) 0 % (0-3); EOSINOPHILS % (MANUAL) 0 % (0-9); LYMPHOCYTES % (MANUAL) 11 % (10-50); MONOCYTES % (MANUAL) 5 % (0-12); NEUTROPHILS % (MANUAL) 83 % (37-80)
[2018-02-16 19:49] LABS: ANISOCYTOSIS SLIGHT AMT; OVALOCYTES PRESENT; POIKILOCYTOSIS SLIGHT AMT; TEAR DROP CELLS PRESENT
[2018-02-16 20:17] LABS: APPEARANCE,URINE Slightly Cloudy; BILIRUBIN,URINE 2+ (NEGATIVE); COLOR,URINE Yellow; GLUCOSE, URINE (UA) NEGATIVE (NEGATIVE); KETONES,URINE TRACE (NEGATIVE); LEUKOCYTE ESTERASE ,URINE 1+ (NEGATIVE); NITRATE,URINE NEGATIVE (NEGATIVE); OCCULT BLOOD,URINE 3+ (NEG-TRACE); UROBILINOGEN,URINE 0.2 (0.2-1.0 EU)
[2018-02-16 20:25] LABS: BACTERIA 3+ (< 1+); CRYSTALS 1+ AMORPH URATES (0-3 AVE/HPF); ICTOTEST,URINE NEGATIVE (NEGATIVE); RBC,URINE 20-25 (0-3AV/HPF); WBC,URINE 70-75 (0-5AV/HPF)
[2018-02-16 20:29] VITALS: BP 112/48; PULSE 86; O2SAT 96
[2018-02-16 20:41] VITALS: TEMP 99.8
[2018-02-16 22:40] LABS: ABO A; RH TYPE Positive
[2018-02-16 22:46] LABS: ANTIBODY SCREEN Positive
[2018-02-17 20:20] LABS: UNIT TYPE A POSITIVE
[2018-02-17 20:25] LABS: UNIT TYPE A POSITIVE
== END 2018-02-16 20:40 | disposition home or self-care (01) | DRG 948 ==
LOC: ED 18:32
DX: R41.0 Disorientation, unspecified (principal); D64.9 Anemia, unspecified; R53.1 Weakness
CPT/HCPCS: 36415; 71045; 80048; 81001; 83880; 84484; 85007; 85027; 85610; 86850; 86900; 86901; 86920; 87088; 93005; 96365; 96374; 96375; 99211; 99283; 99285; J1644; J1750; J2310; J2405

== ENCOUNTER 2018-07-31 17:43 | Inpatient (IN) | payer MEDICARE, BC ==
[2018-07-31] MEDS ORDERED: HEPARIN 500 Unit PRE-FILL 100 U/ML SOL IV PRN (18:23)
[2018-07-31 18:24] LABS: BASOPHILS % (AUTO) 1 % (0-3); EOSINOPHILS % (AUTO) 2 % (0-9); HEMATOCRIT 31 % (35-47); HEMOGLOBIN 9.3 gm/dl (12.0-15.5); LYMPHOCYTES % (AUTO) 35.8 % (10-50); MEAN CORPUSCULAR HEMOGLOBIN 23.9 pg (27.0-32.0); MONOCYTES % (AUTO) 9.5 % (0-12)
[2018-07-31] MEDS ORDERED: HYDROMORPHONE HCL 2 MG/ML SOL IV ONE (18:24)
[2018-07-31] MEDS ORDERED: PROMETHAZINE HYDROCHLORIDE 25 MG/ML SOL IV ONE (18:24)
[2018-07-31] MEDS ORDERED: HYDROMORPHONE 1 MG/ML SYRINGE ONE ×2 (18:26→20:27)
[2018-07-31] MEDS ORDERED: PROMETHAZINE HYDROCHLORIDE 25 MG/ML SOL ONE (18:26)
[2018-07-31 18:29] LABS: MEAN CORPUSCULAR VOLUME 79 fL (81-99)
[2018-07-31] MEDS: SODIUM CHLORIDE 0.9% FLUSH 10 ML SOL IV PRN (18:33)
[2018-07-31 18:38] LABS: ALBUMIN 2.6 gm/dl (3.4-5.0); BILIRUBIN,TOTAL 0.2 mg/dl (0.2-1.0); CALCIUM 7.7 mg/dl (8.5-10.1); CARBON DIOXIDE 23.5 mEq/L (21-32); CREATININE 1.39 mg/dl (0.60-1.00); POTASSIUM 3.9 mMol/L (3.5-5.1); TOTAL PROTEIN 6.4 gm/dl (6.4-8.2)
[2018-07-31 18:41] LABS: HYPOCHROMASIA SLIGHT
[2018-07-31] MEDS ORDERED: ONDANSETRON HCL 4 MG/2 ML SOL IV ONE (20:02)
[2018-07-31] MEDS ORDERED: ONDANSETRON HCL 4 MG/2 ML SOL ONE (20:02)
[2018-07-31] MEDS: SODIUM CHLORIDE 0.9% 1000ML 1,000 ML IV SCH ×2 (20:14→21:46)
[2018-07-31] MEDS ORDERED: HYDROMORPHONE 1 MG/ML SYRINGE IV ONE (20:19)
[2018-07-31] MEDS ORDERED: PROMETHAZINE HCL 25 MG PO PRN (21:25)
[2018-07-31] MEDS ORDERED: EPINEPHRINE 0.3 MG/0.3 ML KIT SC PRN (21:25)
[2018-07-31] MEDS ORDERED: ACETAMINOPHEN 325 MG PO PRN (21:25)
[2018-07-31] MEDS ORDERED: CLONAZEPAM 0.5 MG TAB PO PRN (21:25)
[2018-07-31] MEDS ORDERED: OXYCODONE HYDROCHLORIDE 5 MG TAB PO PRN (21:25)
[2018-07-31] MEDS ORDERED: WARFARIN SODIUM 3 MG TAB PO SCH (21:30)
[2018-07-31] MEDS: TRAZODONE HYDROCHLORIDE 50 MG TAB PO SCH (22:28)
[2018-07-31] MEDS: DOXYCYCLINE 100 MG TAB PO SCH (22:28)
[2018-08-01] MEDS: ONDANSETRON 4 MG ODT PO PRN (00:20)
[2018-08-01] MEDS: SODIUM CHLORIDE 0.9% FLUSH 10 ML SOL IV PRN ×5 (00:21→13:19)
[2018-08-01] MEDS: HYDROMORPHONE 1 MG/ML SYRINGE IV PRN ×6 (00:21→21:27)
[2018-08-01] MEDS ORDERED: PROMETHAZINE HYDROCHLORIDE 25 MG/ML SOL IV ONE (05:30)
[2018-08-01] MEDS ORDERED: OMEPRAZOLE 20 MG CAPSULE PO SCH (07:00)
[2018-08-01 07:47] LABS: INR 3.07 (0.86-1.12)
[2018-08-01] MEDS: CITALOPRAM 20 MG TAB PO SCH (09:30)
[2018-08-01] MEDS: DOXYCYCLINE 100 MG TAB PO SCH ×2 (09:30→20:47)
[2018-08-01] MEDS: PANTOPRAZOLE SODIUM 40 MG ECT PO SCH (09:30)
[2018-08-01] MEDS: PROMETHAZINE HCL 6.25 MG/5 ML SYRP PO PRN ×2 (09:57→17:32)
[2018-08-01] MEDS ORDERED: LEVOFLOXACIN 25 MG/ML 500 MG in SODIUM CHLORIDE 0.9% 100 ML 100 ML IV ONE (11:13)
[2018-08-01] MEDS ORDERED: LEVOFLOXACIN 25 MG/ML SOL IV ONE (11:47)
[2018-08-01] MEDS ORDERED: SODIUM CHLORIDE 0.9% 100 ML 100 ML IV ONE (11:47)
[2018-08-01] MEDS: SODIUM CHLORIDE 0.9% FLUSH 10 ML SOL IV SCH ×3 (17:33→21:28)
[2018-08-01] MEDS ORDERED: WARFARIN SODIUM 3 MG TAB PO ONE (18:00)
[2018-08-01] MEDS ORDERED: WARFARIN SODIUM 3 MG TAB PO SCH (18:00)
[2018-08-01] MEDS: CARBIDOPA/LEVODOPA 25/100 TAB PO SCH (20:45)
[2018-08-01] MEDS: TRAZODONE HYDROCHLORIDE 50 MG TAB PO SCH (20:46)
[2018-08-02] MEDS: HYDROMORPHONE 1 MG/ML SYRINGE IV PRN ×6 (01:19→23:53)
[2018-08-02] MEDS: SODIUM CHLORIDE 0.9% FLUSH 10 ML SOL IV SCH ×8 (01:19→23:54)
[2018-08-02] MEDS: SODIUM CHLORIDE 0.9% FLUSH 10 ML SOL IV PRN (06:30)
[2018-08-02] MEDS: DOXYCYCLINE 100 MG TAB PO SCH ×2 (08:17→20:30)
[2018-08-02] MEDS: PANTOPRAZOLE SODIUM 40 MG ECT PO SCH (08:17)
[2018-08-02] MEDS: CITALOPRAM 20 MG TAB PO SCH (08:18)
[2018-08-02] MEDS ORDERED: LEVOFLOXACIN 25 MG/ML 500 MG in SODIUM CHLORIDE 0.9% 100 ML 100 ML IV SCH (10:00)
[2018-08-02] MEDS: PROMETHAZINE HCL 6.25 MG/5 ML SYRP PO PRN (10:48)
[2018-08-02] MEDS ORDERED: LEVOFLOXACIN 25 MG/ML SOL IV ONE (11:57)
[2018-08-02] MEDS ORDERED: SODIUM CHLORIDE 0.9% 50 ML 50 ML IV ONE (11:58)
[2018-08-02] MEDS: LEVOFLOXACIN 25 MG/ML 250 MG in SODIUM CHLORIDE 0.9% 50 ML 50 ML IV SCH (12:07)
[2018-08-02] MEDS: ONDANSETRON 4 MG ODT PO PRN (15:19)
[2018-08-02] MEDS ORDERED: WARFARIN SODIUM 3 MG TAB PO ONE (18:00)
[2018-08-02] MEDS: PROMETHAZINE HYDROCHLORIDE 25 MG/ML SOL IV PRN (18:09)
[2018-08-02] MEDS: CARBIDOPA/LEVODOPA 25/100 TAB PO SCH (20:30)
[2018-08-02] MEDS: TRAZODONE HYDROCHLORIDE 50 MG TAB PO SCH (20:31)
[2018-08-03] MEDS: PROMETHAZINE HYDROCHLORIDE 25 MG/ML SOL IV PRN (02:29)
[2018-08-03] MEDS: SODIUM CHLORIDE 0.9% FLUSH 10 ML SOL IV PRN ×2 (02:30→12:17)
[2018-08-03] MEDS: SODIUM CHLORIDE 0.9% FLUSH 10 ML SOL IV SCH ×3 (03:37→17:28)
[2018-08-03 07:21] LABS: BASOPHILS % (AUTO) 1 % (0-3); EOSINOPHILS % (AUTO) 3 % (0-9); HEMATOCRIT 26 % (35-47); HEMOGLOBIN 7.8 gm/dl (12.0-15.5); LYMPHOCYTES % (AUTO) 38.8 % (10-50); MEAN CORPUSCULAR HEMOGLOBIN 24.3 pg (27.0-32.0); MEAN CORPUSCULAR HGB CONC 30.3 gm/dl (32.0-36.0); MONOCYTES % (AUTO) 10.3 % (0-12); NEUTROPHILS % (AUTO) 47.5 % (37-80)
[2018-08-03 07:24] LABS: CALCIUM 7.6 mg/dl (8.5-10.1); CREATININE 1.01 mg/dl (0.60-1.00); POTASSIUM 3.7 mMol/L (3.5-5.1)
[2018-08-03 07:28] LABS: MEAN CORPUSCULAR VOLUME 80 fL (81-99)
[2018-08-03 07:34] LABS: INR 1.96 (0.86-1.12)
[2018-08-03 07:51] LABS: ANISOCYTOSIS MOD AMT; OVALOCYTES PRESENT; POIKILOCYTOSIS SLIGHT AMT; TEAR DROP CELLS PRESENT
[2018-08-03] MEDS ORDERED: NALOXONE HYDROCHLORIDE 0.4 MG/ML SOL IV PRN (08:06)
[2018-08-03] MEDS ORDERED: HYDROMORPHONE HYDROCHLORIDE 2 MG TAB PO PRN (08:07)
[2018-08-03] MEDS: DOXYCYCLINE 100 MG TAB PO SCH ×2 (09:03→21:17)
[2018-08-03] MEDS: CITALOPRAM 20 MG TAB PO SCH (09:03)
[2018-08-03] MEDS: PANTOPRAZOLE SODIUM 40 MG ECT PO SCH (09:03)
[2018-08-03] MEDS: ONDANSETRON 4 MG ODT PO PRN (10:22)
[2018-08-03] MEDS: PROMETHAZINE HCL 6.25 MG/5 ML SYRP PO PRN ×2 (11:45→21:13)
[2018-08-03] MEDS ORDERED: PROMETHAZINE HCL 6.25 MG/5 ML SYRP ONE (11:46)
[2018-08-03] MEDS ORDERED: LEVOFLOXACIN 25 MG/ML SOL IV ONE (12:12)
[2018-08-03] MEDS ORDERED: SODIUM CHLORIDE 0.9% 50 ML 50 ML IV ONE (12:12)
[2018-08-03] MEDS: LEVOFLOXACIN 25 MG/ML 250 MG in SODIUM CHLORIDE 0.9% 50 ML 50 ML IV SCH (12:17)
[2018-08-03] MEDS: APAP/HYDROCODONE 325/5 TAB PO PRN ×3 (13:04→21:39)
[2018-08-03] MEDS: HYDROMORPHONE 1 MG/ML SYRINGE IV PRN (15:13)
[2018-08-03] MEDS ORDERED: WARFARIN SODIUM 3 MG TAB PO ONE (18:00)
[2018-08-03] MEDS: CARBIDOPA/LEVODOPA 25/100 TAB PO SCH (21:17)
[2018-08-03] MEDS: TRAZODONE HYDROCHLORIDE 50 MG TAB PO SCH (21:17)
[2018-08-04] MEDS: SODIUM CHLORIDE 0.9% FLUSH 10 ML SOL IV SCH ×2 (03:27→10:03)
[2018-08-04 07:20] LABS: CALCIUM 7.7 mg/dl (8.5-10.1); CARBON DIOXIDE 23.4 mEq/L (21-32); CREATININE 1.2 mg/dl (0.60-1.00); POTASSIUM 3.8 mMol/L (3.5-5.1)
[2018-08-04 07:23] LABS: BASOPHILS % (AUTO) 1 % (0-3); EOSINOPHILS % (AUTO) 3 % (0-9); HEMATOCRIT 27 % (35-47); HEMOGLOBIN 7.9 gm/dl (12.0-15.5); LYMPHOCYTES % (AUTO) 43.8 % (10-50); MEAN CORPUSCULAR HEMOGLOBIN 24.2 pg (27.0-32.0); MEAN CORPUSCULAR HGB CONC 29.8 gm/dl (32.0-36.0); MONOCYTES % (AUTO) 9.1 % (0-12); NEUTROPHILS % (AUTO) 42.7 % (37-80)
[2018-08-04 07:30] LABS: INR 1.96 (0.86-1.12)
[2018-08-04 07:31] LABS: MEAN CORPUSCULAR VOLUME 81 fL (81-99)
[2018-08-04 08:01] LABS: HYPOCHROMASIA PRESENT
[2018-08-04 08:02] LABS: ANISOCYTOSIS SLIGHT
[2018-08-04] MEDS: METRONIDAZOLE 250 MG TAB PO SCH ×2 (09:38→12:51)
[2018-08-04] MEDS: APAP/HYDROCODONE 325/5 TAB PO PRN (09:38)
[2018-08-04] MEDS: PANTOPRAZOLE SODIUM 40 MG ECT PO SCH (09:39)
[2018-08-04] MEDS: CITALOPRAM 20 MG TAB PO SCH (09:39)
[2018-08-04 10:02] VITALS: BP 120/52; PULSE 64; RESP 18; TEMP 97.9
[2018-08-04] MEDS ORDERED: INFLUENZA HIGH DOSE VACCINE 0.5 ML SUS IM ONE (11:00)
[2018-08-04] MEDS ORDERED: PNEUMOC 13-VAL CONJ-DIP CRM/PF 0.5 ML SYRINGE IM ONE (11:00)
[2018-08-04] MEDS: DOXYCYCLINE 100 MG TAB PO SCH (11:23)
[2018-08-04] MEDS ORDERED: LEVOFLOXACIN 25 MG/ML SOL IV ONE (11:47)
[2018-08-04] MEDS ORDERED: SODIUM CHLORIDE 0.9% 50 ML 50 ML IV ONE (11:47)
[2018-08-04] MEDS: LEVOFLOXACIN 25 MG/ML 250 MG in SODIUM CHLORIDE 0.9% 50 ML 50 ML IV SCH (12:04)
[2018-08-04] MEDS: SODIUM CHLORIDE 0.9% FLUSH 10 ML SOL IV PRN ×2 (12:06→13:18)
[2018-08-04 12:52] VITALS: O2SAT 99
== END 2018-08-04 13:45 | disposition home or self-care (01) | DRG 310 ==
LOC: SUPCPDRO 17:43 → ED 17:43 → ACUTE CARE 21:15 → OBSVTOIN 08-01 11:15
PROVIDERS: ADMIT Family Medicine; ATTEND Family Medicine
DX: I48.0 Paroxysmal atrial fibrillation (principal); I48.91 Unspecified atrial fibrillation; D50.9 Iron deficiency anemia, unspecified; R10.9 Unspecified abdominal pain; Z79.01 Long term (current) use of anticoagulants; I10 Essential (primary) hypertension
CPT/HCPCS: 36415; 74176; 80048; 80053; 85025; 85610; 90662; 90670; 94762; 96365; 96374; 96375; 99219; 99285; J1644; J1956; J2405; J2550; A9270-GY; G0008; J1170

== ENCOUNTER 2018-09-24 09:07 | Inpatient (IN) | payer MEDICARE, BC ==
[2018-09-24] MEDS ORDERED: DIPHENHYDRAMINE 50 MG/ML SOL IV PRN (10:10)
[2018-09-24] MEDS ORDERED: SODIUM CHLORIDE 0.9% 1000ML 1,000 ML IV ONE (10:15)
[2018-09-24] MEDS ORDERED: NALOXONE HYDROCHLORIDE 0.4 MG/ML SOL IV PRN (10:17)
[2018-09-24] MEDS ORDERED: HYDROMORPHONE 1 MG/ML SYRINGE IV PRN (10:21)
[2018-09-24 10:43] LABS: BASOPHILS % (AUTO) 1 % (0-3); EOSINOPHILS % (AUTO) 3 % (0-9); HEMATOCRIT 29 % (35-47); HEMOGLOBIN 8.8 gm/dl (12.0-15.5); LYMPHOCYTES % (AUTO) 32.9 % (10-50); MEAN CORPUSCULAR HEMOGLOBIN 25.9 pg (27.0-32.0); MEAN CORPUSCULAR HGB CONC 30.6 gm/dl (32.0-36.0); MEAN CORPUSCULAR VOLUME 85 fL (81-99); MONOCYTES % (AUTO) 7.9 % (0-12); NEUTROPHILS % (AUTO) 55.6 % (37-80)
[2018-09-24] MEDS: SODIUM CHLORIDE 0.9% FLUSH 10 ML SOL IV SCH ×3 (10:51→17:03)
[2018-09-24] MEDS ORDERED: PROMETHAZINE HCL 6.25 MG/5 ML SYRP PO PRN (11:00)
[2018-09-24 11:05] LABS: ALBUMIN 2.6 gm/dl (3.4-5.0); BILIRUBIN,TOTAL 0.4 mg/dl (0.2-1.0); CALCIUM 7.8 mg/dl (8.5-10.1); CARBON DIOXIDE 25.9 mEq/L (21-32); CREATININE 1.38 mg/dl (0.60-1.00); CRP INFLAMMATORY 3.3 mg/dl (0.00-0.33); POTASSIUM 3.8 mMol/L (3.5-5.1); TOTAL PROTEIN 6.2 gm/dl (6.4-8.2)
[2018-09-24] MEDS: ONDANSETRON HCL 4 MG/2 ML SOL IV PRN ×2 (11:20→17:00)
[2018-09-24] MEDS: HYDROMORPHONE 1 MG/ML SYRINGE IV PRN (11:37)
[2018-09-24] MEDS ORDERED: LORAZEPAM 2 MG/ML SOL IV PRN (12:43)
[2018-09-24] MEDS: PROMETHAZINE HYDROCHLORIDE 25 MG/ML SOL IV PRN (12:45)
[2018-09-24] MEDS: SODIUM CHLORIDE 0.45% 1000 ML 1,000 ML with POTASSIUM CHLORIDE 2 MEQ/ML 20 MEQ IV SCH ×2 (14:49→20:59)
[2018-09-24] MEDS: ENOXAPARIN 40 MG SOL SC SCH (16:21)
[2018-09-24] MEDS: CARBIDOPA/LEVODOPA 25/100 TAB PO SCH (20:18)
[2018-09-24] MEDS: TRAZODONE HYDROCHLORIDE 50 MG TAB PO SCH (20:46)
[2018-09-24] MEDS ORDERED: POTASSIUM CHLORIDE 2 MEQ/ML SOL IV ONE (20:50)
[2018-09-24] MEDS ORDERED: PATIENT EDUCATION 1 MISC PRN (22:54)
[2018-09-25] MEDS: ONDANSETRON HCL 4 MG/2 ML SOL IV PRN ×2 (00:52→20:11)
[2018-09-25] MEDS: SODIUM CHLORIDE 0.9% FLUSH 10 ML SOL IV SCH ×3 (01:09→17:30)
[2018-09-25] MEDS ORDERED: HYDROMORPHONE 1 MG/ML SYRINGE ONE (02:32)
[2018-09-25] MEDS ORDERED: POTASSIUM CHLORIDE 2 MEQ/ML SOL IV ONE ×3 (02:54→15:03)
[2018-09-25] MEDS: HYDROMORPHONE 1 MG/ML SYRINGE IV PRN (02:55)
[2018-09-25] MEDS: SODIUM CHLORIDE 0.45% 1000 ML 1,000 ML with POTASSIUM CHLORIDE 2 MEQ/ML 20 MEQ IV SCH ×7 (03:11→21:26)
[2018-09-25] MEDS: PROMETHAZINE HYDROCHLORIDE 25 MG/ML SOL IV PRN (06:37)
[2018-09-25 07:42] LABS: CALCIUM 7.4 mg/dl (8.5-10.1); CARBON DIOXIDE 23.4 mEq/L (21-32); CREATININE 1.1 mg/dl (0.60-1.00); POTASSIUM 4.3 mMol/L (3.5-5.1)
[2018-09-25 07:46] LABS: BASOPHILS % (AUTO) 1 % (0-3); EOSINOPHILS % (AUTO) 3 % (0-9); HEMATOCRIT 25 % (35-47); HEMOGLOBIN 7.7 gm/dl (12.0-15.5); LYMPHOCYTES % (AUTO) 38.2 % (10-50); MEAN CORPUSCULAR HGB CONC 30.1 gm/dl (32.0-36.0); MEAN CORPUSCULAR VOLUME 87 fL (81-99); MONOCYTES % (AUTO) 9.2 % (0-12); NEUTROPHILS % (AUTO) 48.2 % (37-80)
[2018-09-25] MEDS: CITALOPRAM 20 MG TAB PO SCH (09:09)
[2018-09-25] MEDS: PANTOPRAZOLE SODIUM 40 MG ECT PO SCH (09:09)
[2018-09-25] MEDS: ENOXAPARIN 40 MG SOL SC SCH (09:09)
[2018-09-25] MEDS: ASPIRIN EC 81 MG PO SCH (09:09)
[2018-09-25] MEDS: TRAZODONE HYDROCHLORIDE 50 MG TAB PO SCH (20:10)
[2018-09-25] MEDS: CARBIDOPA/LEVODOPA 25/100 TAB PO SCH (20:10)
[2018-09-25] MEDS: ACETAMINOPHEN 325 MG PO PRN (20:12)
[2018-09-26] MEDS: SODIUM CHLORIDE 0.9% FLUSH 10 ML SOL IV SCH ×3 (02:38→18:23)
[2018-09-26] MEDS ORDERED: POTASSIUM CHLORIDE 2 MEQ/ML SOL IV ONE ×3 (03:23→17:15)
[2018-09-26] MEDS: SODIUM CHLORIDE 0.45% 1000 ML 1,000 ML with POTASSIUM CHLORIDE 2 MEQ/ML 20 MEQ IV SCH ×3 (03:28→17:20)
[2018-09-26 07:40] LABS: CALCIUM 7.1 mg/dl (8.5-10.1); CARBON DIOXIDE 21.7 mEq/L (21-32); CREATININE 1.01 mg/dl (0.60-1.00); POTASSIUM 4.4 mMol/L (3.5-5.1)
[2018-09-26 07:44] LABS: BASOPHILS % (AUTO) 1 % (0-3); EOSINOPHILS % (AUTO) 4 % (0-9); HEMATOCRIT 25 % (35-47); HEMOGLOBIN 7.8 gm/dl (12.0-15.5); LYMPHOCYTES % (AUTO) 36.2 % (10-50); MEAN CORPUSCULAR HEMOGLOBIN 26.2 pg (27.0-32.0); MEAN CORPUSCULAR HGB CONC 30.8 gm/dl (32.0-36.0); MEAN CORPUSCULAR VOLUME 85 fL (81-99); NEUTROPHILS % (AUTO) 47.9 % (37-80)
[2018-09-26] MEDS: ONDANSETRON HCL 4 MG/2 ML SOL IV PRN (07:45)
[2018-09-26] MEDS: PANTOPRAZOLE SODIUM 40 MG ECT PO SCH (09:17)
[2018-09-26] MEDS: CITALOPRAM 20 MG TAB PO SCH (09:18)
[2018-09-26] MEDS: ASPIRIN EC 81 MG PO SCH (09:18)
[2018-09-26] MEDS: ENOXAPARIN 40 MG SOL SC SCH (09:19)
[2018-09-26] MEDS ORDERED: HYDROMORPHONE 1 MG/ML SYRINGE IV ONE (10:42)
[2018-09-26] MEDS: HYDROMORPHONE 1 MG/ML SYRINGE IV PRN (16:17)
[2018-09-26] MEDS: ACETAMINOPHEN 325 MG PO PRN (19:17)
[2018-09-26] MEDS: CARBIDOPA/LEVODOPA 25/100 TAB PO SCH (21:31)
[2018-09-26] MEDS: TRAZODONE HYDROCHLORIDE 50 MG TAB PO SCH (21:31)
[2018-09-26 21:50] LABS: ABO A; RH TYPE Positive
[2018-09-26 21:51] LABS: ANTIBODY SCREEN Positive; UNIT TYPE A POSITIVE
[2018-09-26 21:52] LABS: UNIT TYPE A POSITIVE
[2018-09-27] MEDS ORDERED: POTASSIUM CHLORIDE 2 MEQ/ML SOL IV ONE (00:24)
[2018-09-27] MEDS: SODIUM CHLORIDE 0.45% 1000 ML 1,000 ML with POTASSIUM CHLORIDE 2 MEQ/ML 20 MEQ IV SCH ×3 (00:31→10:17)
[2018-09-27] MEDS: SODIUM CHLORIDE 0.9% FLUSH 10 ML SOL IV SCH ×4 (06:19→18:25)
[2018-09-27] MEDS: SODIUM CHLORIDE 0.9% 500 ML 500 ML IV SCH ×2 (06:20→18:27)
[2018-09-27] MEDS: SODIUM CHLORIDE 0.9% FLUSH 10 ML SOL IV PRN ×2 (08:14→08:16)
[2018-09-27 08:33] LABS: CALCIUM 7.8 mg/dl (8.5-10.1); CARBON DIOXIDE 23.3 mEq/L (21-32); CREATININE 0.89 mg/dl (0.60-1.00); POTASSIUM 4.4 mMol/L (3.5-5.1)
[2018-09-27] MEDS: ASPIRIN EC 81 MG PO SCH (08:56)
[2018-09-27] MEDS: CITALOPRAM 20 MG TAB PO SCH (08:56)
[2018-09-27] MEDS: PANTOPRAZOLE SODIUM 40 MG ECT PO SCH (08:56)
[2018-09-27 09:08] LABS: BASOPHILS % (AUTO) 1 % (0-3); EOSINOPHILS % (AUTO) 1 % (0-9); HEMATOCRIT 33 % (35-47); HEMOGLOBIN 10.4 gm/dl (12.0-15.5); LYMPHOCYTES % (AUTO) 18.2 % (10-50); MEAN CORPUSCULAR HEMOGLOBIN 27.1 pg (27.0-32.0); MEAN CORPUSCULAR HGB CONC 31.8 gm/dl (32.0-36.0); MEAN CORPUSCULAR VOLUME 85 fL (81-99); NEUTROPHILS % (AUTO) 73.5 % (37-80)
[2018-09-27] MEDS: DEXTROSE/SALINE 0.45/KCL 20MEQ 1,000 ML/1,000 ML SOL IV SCH ×2 (10:03→20:11)
[2018-09-27] MEDS: OXYCODONE HYDROCHLORIDE 5 MG TAB PO PRN ×3 (11:06→20:21)
[2018-09-27] MEDS: TRAZODONE HYDROCHLORIDE 50 MG TAB PO SCH (20:09)
[2018-09-27] MEDS: CARBIDOPA/LEVODOPA 25/100 TAB PO SCH (20:09)
[2018-09-27] MEDS: PROMETHAZINE HYDROCHLORIDE 25 MG/ML SOL IV PRN (20:17)
[2018-09-27 22:55] VITALS: RESP 18; O2SAT 98
[2018-09-28] MEDS: DEXTROSE/SALINE 0.45/KCL 20MEQ 1,000 ML/1,000 ML SOL IV SCH (06:12)
[2018-09-28] MEDS: OXYCODONE HYDROCHLORIDE 5 MG TAB PO PRN ×2 (06:39→12:10)
[2018-09-28] MEDS: SODIUM CHLORIDE 0.9% FLUSH 10 ML SOL IV SCH ×3 (06:57→13:53)
[2018-09-28 07:56] VITALS: BP 159/79; PULSE 68; TEMP 98.8
[2018-09-28] MEDS: CITALOPRAM 20 MG TAB PO SCH (09:04)
[2018-09-28] MEDS: ASPIRIN EC 81 MG PO SCH (09:04)
[2018-09-28 09:05] LABS: CALCIUM 7.5 mg/dl (8.5-10.1); CARBON DIOXIDE 25.2 mEq/L (21-32); CREATININE 0.9 mg/dl (0.60-1.00); POTASSIUM 4.4 mMol/L (3.5-5.1)
[2018-09-28] MEDS: PANTOPRAZOLE SODIUM 40 MG ECT PO SCH (09:05)
[2018-09-28] MEDS ORDERED: HEPARIN 500 Unit PRE-FILL 100 U/ML SOL IV PRN (13:38)
[2018-09-28] MEDS ORDERED: HEPARIN 500 Unit PRE-FILL 100 U/ML SOL IV ONE (13:41)
== END 2018-09-28 13:55 | disposition home or self-care (01) | DRG 390 ==
LOC: ACUTE CARE 09:47
PROVIDERS: ADMIT Family Medicine; ATTEND Family Medicine
PROC: 30233N1 Transfusion of Nonautologous Red Blood Cells into Peripheral Vein, Percutaneous Approach (ICD-10-PCS; principal; 2018-09-26)
DX: K56.699 Other intestinal obstruction unspecified as to partial versus complete obstruction (principal); G89.29 Other chronic pain; I10 Essential (primary) hypertension; I48.91 Unspecified atrial fibrillation; Z79.01 Long term (current) use of anticoagulants; D50.9 Iron deficiency anemia, unspecified; R50.9 Fever, unspecified; E86.0 Dehydration
CPT/HCPCS: 36591; 80048; 80053; 85025; 86850; 86900; 86901; 86922; 94762; 99070; J1200; J1644; J1650; J2405; J2550; J3480; A9270-GY; J1170

== ENCOUNTER 2018-10-10 16:20 | Emergency (ER) | payer MEDICARE, BC ==
[2018-10-10 16:29] VITALS: RESP 20; TEMP 97
[2018-10-10] MEDS ORDERED: HYDROMORPHONE 1 MG/ML SYRINGE IV ONE (16:48)
[2018-10-10] MEDS ORDERED: HYDROMORPHONE 1 MG/ML SYRINGE ONE (16:49)
[2018-10-10] MEDS: SODIUM CHLORIDE 0.9% FLUSH 10 ML SOL IV PRN ×2 (16:50→18:53)
[2018-10-10 16:53] LABS: BASOPHILS % (AUTO) 1 % (0-3); EOSINOPHILS % (AUTO) 3 % (0-9); HEMATOCRIT 33 % (35-47); HEMOGLOBIN 10.3 gm/dl (12.0-15.5); MEAN CORPUSCULAR HEMOGLOBIN 26.6 pg (27.0-32.0); MEAN CORPUSCULAR HGB CONC 31.6 gm/dl (32.0-36.0); MEAN CORPUSCULAR VOLUME 84 fL (81-99); MONOCYTES % (AUTO) 7.5 % (0-12); NEUTROPHILS % (AUTO) 53.2 % (37-80)
[2018-10-10] MEDS ORDERED: SODIUM CHLORIDE 0.9% 1000ML 1,000 ML IV ONE (17:01)
[2018-10-10 17:07] LABS: ALBUMIN 2.7 gm/dl (3.4-5.0); BILIRUBIN,TOTAL 0.4 mg/dl (0.2-1.0); CALCIUM 7.8 mg/dl (8.5-10.1); CARBON DIOXIDE 26.2 mEq/L (21-32); CREATININE 1.22 mg/dl (0.60-1.00); POTASSIUM 4.2 mMol/L (3.5-5.1); TOTAL PROTEIN 6.4 gm/dl (6.4-8.2)
[2018-10-10 17:13] VITALS: O2SAT 96
[2018-10-10] MEDS ORDERED: PROMETHAZINE HYDROCHLORIDE 25 MG/ML SOL IV ONE (17:58)
[2018-10-10] MEDS ORDERED: PROMETHAZINE HYDROCHLORIDE 25 MG/ML SOL ONE (18:03)
[2018-10-10 18:07] LABS: APPEARANCE,URINE Clear; BILIRUBIN,URINE NEGATIVE (NEGATIVE); COLOR,URINE Dark yellow; GLUCOSE, URINE (UA) NEGATIVE (NEGATIVE); KETONES,URINE NEGATIVE (NEGATIVE); LEUKOCYTE ESTERASE ,URINE TRACE (NEGATIVE); NITRATE,URINE NEGATIVE (NEGATIVE); OCCULT BLOOD,URINE NEGATIVE (NEG-TRACE); UROBILINOGEN,URINE 0.2 (0.2-1.0 EU)
[2018-10-10 18:12] LABS: BACTERIA 1+ (< 1+); CRYSTALS NEGATIVE (0-3 AVE/HPF); RBC,URINE 0-2 (0-3AV/HPF)
[2018-10-10] MEDS ORDERED: KETOROLAC TROMETHAMINE 30 MG/ML SOL IV ONE (18:52)
[2018-10-10] MEDS ORDERED: KETOROLAC TROMETHAMINE 30 MG/ML SOL ONE (18:53)
[2018-10-10] MEDS ORDERED: HEPARIN SODIUM 100 U/ML SOL IV ONE (18:53)
[2018-10-10] MEDS ORDERED: HEPARIN 500 Unit PRE-FILL 100 U/ML SOL IV PRN (19:00)
[2018-10-10 19:10] VITALS: BP 168/87; PULSE 69
== END 2018-10-10 19:18 | disposition home or self-care (01) | DRG 690 ==
LOC: ED 16:20
DX: N39.0 Urinary tract infection, site not specified (principal)
CPT/HCPCS: 36591; 74176; 80053; 81001; 82150; 85025; 87088; 96365; 96374; 96375; 99282; 99285; J1644; J1885; J2550; J1170

== ENCOUNTER 2018-11-28 14:52 | Inpatient (IN) | payer MEDICARE, BC ==
[2018-11-28] MEDS ORDERED: SODIUM CHLORIDE 0.9% 1000ML 1,000 ML IV ONE (14:54)
[2018-11-28] MEDS ORDERED: HYDROMORPHONE 1 MG/ML SYRINGE IV ONE ×3 (14:55→18:07)
[2018-11-28] MEDS ORDERED: ONDANSETRON HCL 4 MG/2 ML SOL IV ONE (14:56)
[2018-11-28] MEDS: SODIUM CHLORIDE 0.9% FLUSH 10 ML SOL IV PRN ×3 (16:58→20:14)
[2018-11-28] MEDS ORDERED: HYDROMORPHONE 1 MG/ML SYRINGE ONE (18:22)
[2018-11-28] MEDS: HYDROMORPHONE 1 MG/ML SYRINGE IV PRN ×2 (20:14→21:57)
[2018-11-28] MEDS: SODIUM CHLORIDE 0.9% 1000ML 1,000 ML IV SCH (20:14)
[2018-11-28] MEDS ORDERED: PROMETHAZINE HCL 25 MG PO PRN (21:23)
[2018-11-28] MEDS ORDERED: ONDANSETRON 4 MG ODT PO PRN (21:23)
[2018-11-28] MEDS ORDERED: ACETAMINOPHEN 325 MG PO PRN (21:23)
[2018-11-28] MEDS ORDERED: EPINEPHRINE 0.3 MG/0.3 ML KIT SC PRN (21:23)
[2018-11-28] MEDS ORDERED: OXYCODONE HYDROCHLORIDE 5 MG TAB PO PRN (21:46)
[2018-11-28] MEDS ORDERED: DIPHENHYDRAMINE 25 MG CAP PO PRN (21:48)
[2018-11-28] MEDS: CIPROFLOXACIN HCL 500 MG TAB PO SCH (21:59)
[2018-11-28] MEDS ORDERED: PANTOPRAZOLE SODIUM 40 MG ECT PO ONE (22:42)
[2018-11-29] MEDS: HYDROMORPHONE 1 MG/ML SYRINGE IV PRN ×4 (00:32→05:28)
[2018-11-29] MEDS: SODIUM CHLORIDE 0.9% 1000ML 1,000 ML IV SCH ×2 (03:00→09:39)
[2018-11-29 06:12] VITALS: RESP 18
[2018-11-29] MEDS ORDERED: PANTOPRAZOLE SODIUM 40 MG ECT PO SCH (07:00)
[2018-11-29] MEDS ORDERED: OMEPRAZOLE 20 MG CAPSULE PO SCH (07:00)
[2018-11-29 07:42] VITALS: BP 153/70; PULSE 70; TEMP 98.2
[2018-11-29] MEDS ORDERED: ENOXAPARIN 40 MG SOL SC SCH (09:00)
[2018-11-29] MEDS ORDERED: CITALOPRAM 20 MG TAB PO SCH (09:00)
[2018-11-29] MEDS: CIPROFLOXACIN HCL 500 MG TAB PO SCH (09:06)
[2018-11-29] MEDS ORDERED: SODIUM CHLORIDE 0.9% 50 ML 25 ML IV PRN (09:27)
[2018-11-29] MEDS ORDERED: HEPARIN 500 Unit PRE-FILL 100 U/ML SOL IV PRN (09:27)
[2018-11-29 09:54] LABS: BASOPHILS % (AUTO) 1 % (0-3); EOSINOPHILS % (AUTO) 2 % (0-9); HEMATOCRIT 28 % (35-47); HEMOGLOBIN 8.5 gm/dl (12.0-15.5); LYMPHOCYTES % (AUTO) 23.4 % (10-50); MEAN CORPUSCULAR HEMOGLOBIN 23.9 pg (27.0-32.0); MONOCYTES % (AUTO) 9.9 % (0-12); NEUTROPHILS % (AUTO) 63.7 % (37-80)
[2018-11-29 09:57] LABS: CALCIUM 7.7 mg/dl (8.5-10.1); CREATININE 1.09 mg/dl (0.60-1.00); POTASSIUM 4.4 mMol/L (3.5-5.1)
[2018-11-29] MEDS: SODIUM CHLORIDE 0.9% FLUSH 10 ML SOL IV PRN (10:02)
[2018-11-29 10:05] LABS: MEAN CORPUSCULAR VOLUME 79 fL (81-99)
[2018-11-29 10:08] LABS: CARBON DIOXIDE 22.2 mEq/L (21-32)
[2018-11-29 10:38] VITALS: O2SAT 98
[2018-11-29 11:01] LABS: ANISOCYTOSIS MOD AMT; HYPOCHROMASIA PRESENT
[2018-11-29] MEDS ORDERED: CARBIDOPA PO SCH (21:00)
[2018-11-29] MEDS ORDERED: LEVODOPA PO SCH (21:00)
[2018-11-29] MEDS ORDERED: [UNRECOGNIZED DRUG - OTHER] PO SCH (21:00)
== END 2018-11-29 10:35 | disposition home or self-care (01) | DRG 392 ==
LOC: INFUSION 14:52 → ACUTE CARE 19:49
PROVIDERS: ADMIT Family Medicine; ATTEND Family Medicine
DX: K52.9 Noninfective gastroenteritis and colitis, unspecified (principal); R93.5 Abnormal findings on diagnostic imaging of other abdominal regions, including retroperitoneum; N39.0 Urinary tract infection, site not specified; N17.9 Acute kidney failure, unspecified; R10.9 Unspecified abdominal pain; E86.0 Dehydration
CPT/HCPCS: 36415; 74176; 80048; 85025; 94762; J1644; J1650; J2405; A9270-GY; J1170

== ENCOUNTER 2019-01-02 19:48 | Emergency (ER) | payer MEDICARE, BC ==
[2019-01-02] MEDS ORDERED: KETOROLAC TROMETHAMINE 30 MG/ML SOL IV ONE (20:20)
[2019-01-02] MEDS ORDERED: ONDANSETRON HCL 4 MG/2 ML SOL IV ONE (20:20)
[2019-01-02] MEDS ORDERED: ONDANSETRON HCL 4 MG/2 ML SOL ONE (20:28)
[2019-01-02] MEDS ORDERED: KETOROLAC TROMETHAMINE 30 MG/ML SOL ONE (20:28)
[2019-01-02 20:35] LABS: HEMATOCRIT 28 % (35-47); HEMOGLOBIN 8.6 gm/dl (12.0-15.5); MEAN CORPUSCULAR HEMOGLOBIN 24.5 pg (27.0-32.0); MEAN CORPUSCULAR HGB CONC 30.9 gm/dl (32.0-36.0)
[2019-01-02] MEDS ORDERED: HEPARIN 500 Unit PRE-FILL 100 U/ML SOL IV PRN (20:36)
[2019-01-02] MEDS ORDERED: SODIUM CHLORIDE 0.9% FLUSH 10 ML SOL IV PRN (20:36)
[2019-01-02 20:38] LABS: MEAN CORPUSCULAR VOLUME 79 fL (81-99)
[2019-01-02] MEDS ORDERED: SODIUM CHLORIDE 0.9% 1000ML 1,000 ML IV ONE ×2 (20:39→20:40)
[2019-01-02 20:46] LABS: ALBUMIN 2.5 gm/dl (3.4-5.0); BILIRUBIN,TOTAL 0.4 mg/dl (0.2-1.0); CALCIUM 7.8 mg/dl (8.5-10.1); CARBON DIOXIDE 24.8 mEq/L (21-32); CREATININE 1.02 mg/dl (0.60-1.00); POTASSIUM 3.8 mMol/L (3.5-5.1); TOTAL PROTEIN 6.4 gm/dl (6.4-8.2)
[2019-01-02 20:55] LABS: BAND NEUTROPHILS % (MANUAL) 6 %; BASOPHILS % (MANUAL) 0 % (0-3); EOSINOPHILS % (MANUAL) 0 % (0-9); LYMPHOCYTES % (MANUAL) 25 % (10-50); MONOCYTES % (MANUAL) 1 % (0-12); NEUTROPHILS % (MANUAL) 68 % (37-80); NORMAL RBCS PRESENT
[2019-01-02 21:49] LABS: APPEARANCE,URINE Clear; BILIRUBIN,URINE NEGATIVE (NEGATIVE); COLOR,URINE Yellow; GLUCOSE, URINE (UA) NEGATIVE (NEGATIVE); KETONES,URINE NEGATIVE (NEGATIVE); LEUKOCYTE ESTERASE ,URINE 1+ (NEGATIVE); NITRATE,URINE NEGATIVE (NEGATIVE); OCCULT BLOOD,URINE 2+ (NEG-TRACE); UROBILINOGEN,URINE 0.2 (0.2-1.0 EU)
[2019-01-02 21:54] LABS: BACTERIA 1+ (< 1+); CRYSTALS NEGATIVE (0-3 AVE/HPF)
[2019-01-02] MEDS ORDERED: HEPARIN 500 Unit PRE-FILL 100 U/ML SOL IV ONE (22:43)
[2019-01-02 23:23] VITALS: BP 124/69; PULSE 58; RESP 16; TEMP 98.5; O2SAT 95
== END 2019-01-02 23:11 | disposition home or self-care (01) | DRG 153 ==
LOC: ED 19:48
DX: J06.9 Acute upper respiratory infection, unspecified (principal); R06.02 Shortness of breath; Z79.01 Long term (current) use of anticoagulants
CPT/HCPCS: 36591; 70450; 71046; 74019; 80053; 81001; 85007; 85027; 86308; 87088; 93005; 96365; 96366; 96374; 96375; 99284; 99285; J1644; J1885; J2405

== ENCOUNTER 2019-01-12 14:02 | Inpatient (IN) | payer MEDICARE, BC ==
[2019-01-12] MEDS ORDERED: NALOXONE HYDROCHLORIDE 0.4 MG/ML SOL IV PRN (14:13)
[2019-01-12] MEDS ORDERED: SODIUM CHLORIDE 0.9% 1000 ML SOL IV SCH (14:15)
[2019-01-12 14:46] LABS: BASOPHILS % (AUTO) 1 % (0-3); EOSINOPHILS % (AUTO) 1 % (0-9); HEMATOCRIT 25 % (35-47); HEMOGLOBIN 7.6 gm/dl (12.0-15.5); LYMPHOCYTES % (AUTO) 20.8 % (10-50); MEAN CORPUSCULAR HEMOGLOBIN 24.3 pg (27.0-32.0); MEAN CORPUSCULAR HGB CONC 30.2 gm/dl (32.0-36.0); MONOCYTES % (AUTO) 11.2 % (0-12); NEUTROPHILS % (AUTO) 66.4 % (37-80)
[2019-01-12 14:49] LABS: CARBON DIOXIDE 21.5 mEq/L (21-32); CREATININE 1.61 mg/dl (0.60-1.00); POTASSIUM 3.8 mMol/L (3.5-5.1)
[2019-01-12 15:02] LABS: INR 1.97 (0.86-1.12)
[2019-01-12 15:22] LABS: MEAN CORPUSCULAR VOLUME 80 fL (81-99)
[2019-01-12 15:28] LABS: ANISOCYTOSIS SLIGHT
[2019-01-12] MEDS: HYDROMORPHONE 1 MG/ML SYRINGE IV PRN (15:32)
[2019-01-12] MEDS: DEXTROSE/SALINE 0.45/KCL 20MEQ 1,000 ML/1,000 ML SOL IV SCH ×2 (16:25→22:37)
[2019-01-12] MEDS ORDERED: WARFARIN SODIUM 1 MG TAB PO ONE (18:15)
[2019-01-12] MEDS ORDERED: ACETAMINOPHEN 325 MG PO PRN (19:33)
[2019-01-12] MEDS ORDERED: WARFARIN SODIUM 3 MG TAB PO SCH (19:45)
[2019-01-12] MEDS ORDERED: [UNRECOGNIZED DRUG - OTHER] PO SCH (21:00)
[2019-01-12] MEDS: ONDANSETRON HCL 4 MG/2 ML SOL IV PRN (21:00)
[2019-01-12] MEDS ORDERED: CARBIDOPA PO SCH (21:00)
[2019-01-12] MEDS ORDERED: LEVODOPA PO SCH (21:00)
[2019-01-12] MEDS: PROMETHAZINE HCL 6.25 MG/5 ML SYRP PO PRN (22:35)
[2019-01-13] MEDS ORDERED: HEPARIN 500 Unit PRE-FILL 100 U/ML SOL IV PRN (00:34)
[2019-01-13] MEDS: DEXTROSE/SALINE 0.45/KCL 20MEQ 1,000 ML/1,000 ML SOL IV SCH ×3 (05:22→19:50)
[2019-01-13] MEDS: PANTOPRAZOLE SODIUM 40 MG ECT PO SCH (06:43)
[2019-01-13] MEDS ORDERED: OMEPRAZOLE 20 MG CAPSULE PO SCH (07:00)
[2019-01-13 07:25] LABS: BASOPHILS % (AUTO) 1 % (0-3); EOSINOPHILS % (AUTO) 2 % (0-9); HEMATOCRIT 22 % (35-47); LYMPHOCYTES % (AUTO) 32.5 % (10-50); MEAN CORPUSCULAR HEMOGLOBIN 24.4 pg (27.0-32.0); MEAN CORPUSCULAR HGB CONC 29.6 gm/dl (32.0-36.0); MEAN CORPUSCULAR VOLUME 82 fL (81-99); MONOCYTES % (AUTO) 12.3 % (0-12)
[2019-01-13 07:30] LABS: CALCIUM 7.4 mg/dl (8.5-10.1); CARBON DIOXIDE 22.3 mEq/L (21-32); CREATININE 1.16 mg/dl (0.60-1.00); POTASSIUM 4.5 mMol/L (3.5-5.1)
[2019-01-13 07:31] LABS: HEMOGLOBIN 6.5 gm/dl (12.0-15.5)
[2019-01-13 07:43] LABS: INR 1.94 (0.86-1.12)
[2019-01-13 07:54] LABS: HYPOCHROMASIA SLIGHT AMT; OVALOCYTES PRESENT; POIKILOCYTOSIS SLIGHT AMT; TEAR DROP CELLS PRESENT
[2019-01-13 07:58] LABS: ABO A
[2019-01-13 07:59] LABS: RH TYPE Positive
[2019-01-13] MEDS: ONDANSETRON HCL 4 MG/2 ML SOL IV PRN ×2 (08:43→20:18)
[2019-01-13] MEDS: SODIUM CHLORIDE 0.9% FLUSH 10 ML SOL IV PRN ×3 (08:44→23:13)
[2019-01-13] MEDS: CITALOPRAM 20 MG TAB PO SCH (08:44)
[2019-01-13] MEDS: HYDROMORPHONE 1 MG/ML SYRINGE IV PRN (09:15)
[2019-01-13] MEDS ORDERED: CEFAZOLIN SODIUM 1 GM PDS ONE ×2 (09:25→21:37)
[2019-01-13] MEDS: CEFAZOLIN SODIUM 1 GM PDS 1 GM in SODIUM CHLORIDE 0.9% 50 ML 50 ML IV SCH ×2 (09:41→21:50)
[2019-01-13] MEDS: PROMETHAZINE HCL 6.25 MG/5 ML SYRP PO PRN ×2 (11:55→16:06)
[2019-01-13] MEDS ORDERED: MORPHINE SULFATE 10 MG/ML SOL IV PRN (15:30)
[2019-01-13] MEDS ORDERED: WARFARIN SODIUM 3 MG TAB PO SCH ×2 (18:00)
[2019-01-13] MEDS: CARBIDOPA/LEVODOPA 25/100 TAB PO SCH (20:18)
[2019-01-13 20:40] LABS: ANTIBODY SCREEN Positive; UNIT TYPE A POSITIVE
[2019-01-13 20:42] LABS: UNIT TYPE A POSITIVE
[2019-01-13] MEDS ORDERED: SODIUM CHLORIDE 0.9% 50 ML 50 ML IV ONE (21:37)
[2019-01-14] MEDS: DEXTROSE/SALINE 0.45/KCL 20MEQ 1,000 ML/1,000 ML SOL IV SCH ×3 (04:04→19:59)
[2019-01-14] MEDS ORDERED: MORPHINE SULFATE 10 MG/ML SOL ONE ×2 (04:16→04:19)
[2019-01-14] MEDS: PANTOPRAZOLE SODIUM 40 MG ECT PO SCH (06:22)
[2019-01-14] MEDS: SODIUM CHLORIDE 0.9% FLUSH 10 ML SOL IV PRN ×2 (06:52→15:26)
[2019-01-14 07:15] LABS: CALCIUM 7.5 mg/dl (8.5-10.1); CARBON DIOXIDE 21.5 mEq/L (21-32); CREATININE 1.09 mg/dl (0.60-1.00); POTASSIUM 4.7 mMol/L (3.5-5.1)
[2019-01-14 07:23] LABS: BASOPHILS % (AUTO) 1 % (0-3); EOSINOPHILS % (AUTO) 3 % (0-9); HEMATOCRIT 28 % (35-47); HEMOGLOBIN 8.7 gm/dl (12.0-15.5); LYMPHOCYTES % (AUTO) 28.8 % (10-50); MEAN CORPUSCULAR HGB CONC 31.4 gm/dl (32.0-36.0); MEAN CORPUSCULAR VOLUME 83 fL (81-99); NEUTROPHILS % (AUTO) 56.1 % (37-80)
[2019-01-14 07:56] LABS: INR 1.65 (0.86-1.12)
[2019-01-14] MEDS: CITALOPRAM 20 MG TAB PO SCH (08:35)
[2019-01-14] MEDS ORDERED: CEFAZOLIN SODIUM 1 GM PDS ONE ×2 (09:01→20:50)
[2019-01-14] MEDS ORDERED: SODIUM CHLORIDE 0.9% 50 ML 50 ML IV ONE ×2 (09:02→20:50)
[2019-01-14] MEDS: PANTOPRAZOLE SODIUM 40 MG/10 ML PDS IV SCH (09:05)
[2019-01-14] MEDS: CEFAZOLIN SODIUM 1 GM PDS 1 GM in SODIUM CHLORIDE 0.9% 50 ML 50 ML IV SCH ×2 (09:24→21:09)
[2019-01-14] MEDS: KETOROLAC TROMETHAMINE 30 MG/ML SOL IV PRN ×2 (09:25→15:26)
[2019-01-14] MEDS: ONDANSETRON HCL 4 MG/2 ML SOL IV PRN ×2 (12:33→21:17)
[2019-01-14] MEDS ORDERED: WARFARIN SODIUM 3 MG TAB PO SCH ×2 (18:00)
[2019-01-14] MEDS: CARBIDOPA/LEVODOPA 25/100 TAB PO SCH (21:10)
[2019-01-15 07:24] LABS: BASOPHILS % (AUTO) 1 % (0-3); EOSINOPHILS % (AUTO) 2 % (0-9); HEMATOCRIT 30 % (35-47); HEMOGLOBIN 9.4 gm/dl (12.0-15.5); LYMPHOCYTES % (AUTO) 25.9 % (10-50); MEAN CORPUSCULAR HEMOGLOBIN 25.7 pg (27.0-32.0); MEAN CORPUSCULAR HGB CONC 31.1 gm/dl (32.0-36.0); MEAN CORPUSCULAR VOLUME 83 fL (81-99); NEUTROPHILS % (AUTO) 61.6 % (37-80)
[2019-01-15 07:27] LABS: CALCIUM 7.4 mg/dl (8.5-10.1); CARBON DIOXIDE 21.6 mEq/L (21-32); CREATININE 0.96 mg/dl (0.60-1.00); POTASSIUM 5.1 mMol/L (3.5-5.1)
[2019-01-15 07:33] LABS: INR 1.89 (0.86-1.12)
[2019-01-15] MEDS ORDERED: APAP/OXYCODONE 1 EACH TABLET PO PRN (08:32)
[2019-01-15] MEDS: SODIUM CHLORIDE 0.9% FLUSH 10 ML SOL IV PRN (09:06)
[2019-01-15] MEDS: PANTOPRAZOLE SODIUM 40 MG/10 ML PDS IV SCH (09:06)
[2019-01-15] MEDS: CITALOPRAM 20 MG TAB PO SCH (09:06)
[2019-01-15 11:02] VITALS: BP 152/76; PULSE 72; TEMP 98.7; O2SAT 93
[2019-01-15 12:16] VITALS: RESP 20
[2019-01-15] MEDS ORDERED: CEPHALEXIN 250 MG/5 ML BOTTLE PO ONE (12:30)
[2019-01-15] MEDS ORDERED: WARFARIN SODIUM 3 MG TAB PO SCH (18:00)
== END 2019-01-15 13:35 | disposition home or self-care (01) | DRG 378 ==
LOC: ACUTE CARE 14:02
PROVIDERS: ADMIT Family Medicine; ATTEND Family Medicine
PROC: 30233N1 Transfusion of Nonautologous Red Blood Cells into Peripheral Vein, Percutaneous Approach (ICD-10-PCS; principal; 2019-01-14)
DX: K62.5 Hemorrhage of anus and rectum (principal); K94.12 Enterostomy infection; K56.609 Unspecified intestinal obstruction, unspecified as to partial versus complete obstruction; I82.492 Acute embolism and thrombosis of other specified deep vein of left lower extremity; I10 Essential (primary) hypertension; L30.9 Dermatitis, unspecified; Z79.01 Long term (current) use of anticoagulants; K60.3 Anal fistula; D64.9 Anemia, unspecified; R10.9 Unspecified abdominal pain; B96.20 Unspecified Escherichia coli [E. coli] as the cause of diseases classified elsewhere
CPT/HCPCS: 36415; 36430; 36591; 80048; 85025; 85610; 86850; 86900; 86901; 86922; 87070; 87077; 87186; 94762; 99070; 99231; J0690; J1644; J1885; J2270; J2405; P9016; A9270-GY; J1170

== ENCOUNTER 2019-01-31 07:17 | Emergency (ER) | payer MEDICARE, BC ==
[2019-01-31 07:25] VITALS: RESP 16; TEMP 97.1
[2019-01-31] MEDS ORDERED: SODIUM CHLORIDE 0.9% 1000ML 1,000 ML IV ONE ×2 (07:49→11:37)
[2019-01-31] MEDS ORDERED: ONDANSETRON HCL 4 MG/2 ML SOL IV ONE (07:49)
[2019-01-31] MEDS ORDERED: HYDROMORPHONE 1 MG/ML SYRINGE ONE ×3 (08:02→11:53)
[2019-01-31] MEDS ORDERED: ONDANSETRON HCL 4 MG/2 ML SOL ONE (08:02)
[2019-01-31] MEDS: HYDROMORPHONE 1 MG/ML SYRINGE IV PRN ×2 (08:08→09:32)
[2019-01-31 08:24] LABS: BASOPHILS % (AUTO) 1 % (0-3); EOSINOPHILS % (AUTO) 1 % (0-9); HEMATOCRIT 31 % (35-47); HEMOGLOBIN 9.7 gm/dl (12.0-15.5); LYMPHOCYTES % (AUTO) 16.8 % (10-50); MEAN CORPUSCULAR VOLUME 84 fL (81-99); MONOCYTES % (AUTO) 11.8 % (0-12); NEUTROPHILS % (AUTO) 69.3 % (37-80)
[2019-01-31] MEDS ORDERED: HEPARIN 500 Unit PRE-FILL 100 U/ML SOL IV PRN (08:26)
[2019-01-31 08:38] LABS: ALBUMIN 2.5 gm/dl (3.4-5.0); ALKALINE PHOSPHATASE 67 IU/L (46-116); AST 10 IU/L (15-37); BILIRUBIN,TOTAL 0.6 mg/dl (0.2-1.0); BLOOD UREA NITROGEN 20 mg/dl (7-18); CALCIUM 7.7 mg/dl (8.5-10.1); CARBON DIOXIDE 24.8 mEq/L (21-32); CHLORIDE 104 mMol/L (98-107); CRP INFLAMMATORY 6.06 mg/dl (0.00-0.33); GLUCOSE 123 mg/dl (74-106); POTASSIUM 3.9 mMol/L (3.5-5.1); SODIUM 139 mMol/L (136-145); TOTAL PROTEIN 6.2 gm/dl (6.4-8.2)
[2019-01-31 09:08] LABS: ALT < 6 IU/L (14-63)
[2019-01-31 09:36] LABS: SEDIMENTATION RATE 56 mm/hr (0-20)
[2019-01-31] MEDS ORDERED: LEVOFLOXACIN 25 MG/ML 500 MG in SODIUM CHLORIDE 0.9% 100 ML 100 ML IV ONE (11:26)
[2019-01-31] MEDS ORDERED: METRONIDAZOLE 500 MG (PREMIX) 500 MG/100 ML SOL IV ONE ×2 (11:28→12:21)
[2019-01-31] MEDS ORDERED: LEVOFLOXACIN 25 MG/ML SOL IV ONE (11:49)
[2019-01-31] MEDS ORDERED: HYDROMORPHONE 1 MG/ML SYRINGE IV PRN (11:53)
[2019-01-31] MEDS ORDERED: PROCHLORPERAZINE EDISYLATE 5 MG/ML SOL IV ONE (11:54)
[2019-01-31] MEDS ORDERED: PROCHLORPERAZINE EDISYLATE 5 MG/ML SOL ONE (12:27)
[2019-01-31 14:14] VITALS: BP 151/64; PULSE 65; O2SAT 94
== END 2019-01-31 13:23 | disposition short-term general hospital (02) | DRG 392 ==
LOC: ED 07:17
DX: R10.84 Generalized abdominal pain (principal); I48.91 Unspecified atrial fibrillation; I10 Essential (primary) hypertension
CPT/HCPCS: 36591; 74176; 80053; 85025; 85651; 96365; 96366; 96374; 96375; 99284; 99285; J0780; J1956; J2405; J1170; J3490

== ENCOUNTER 2019-07-16 11:18 | Inpatient (IN) | payer MEDICARE, BC ==
[2019-07-16] MEDS ORDERED: ACETAMINOPHEN 500 MG 500 MG TAB PO PRN (16:18)
[2019-07-16] MEDS ORDERED: FLUTICASONE PROPION IH PRN (16:18)
[2019-07-16] MEDS ORDERED: Non-Formulary Medication MISC (Budesonide/Formoterol 160/4.5 [Budesonide/Formot 160/4.5 INH PRN (16:18)
[2019-07-16] MEDS ORDERED: Non-Formulary Medication MISC (Fluticasone Propionate 2 SPR) NAS PRN (16:18)
[2019-07-16] MEDS ORDERED: [UNRECOGNIZED DRUG - OTHER] IH PRN (16:18)
[2019-07-16] MEDS ORDERED: SALMETEROL IH PRN (16:18)
[2019-07-16] MEDS ORDERED: ENOXAPARIN 40 MG SOL SC ONE (18:00)
[2019-07-16] MEDS: TRAZODONE HYDROCHLORIDE 50 MG TAB PO SCH (20:37)
[2019-07-16] MEDS ORDERED: LEVODOPA PO SCH (21:00)
[2019-07-16] MEDS ORDERED: CARBIDOPA PO SCH (21:00)
[2019-07-16] MEDS ORDERED: [UNRECOGNIZED DRUG - OTHER] PO SCH (21:00)
[2019-07-16] MEDS: CLONAZEPAM 0.5 MG TAB PO SCH (21:38)
[2019-07-16] MEDS: OXYCODONE HYDROCHLORIDE 5 MG TAB PO PRN (22:15)
[2019-07-17] MEDS: PANTOPRAZOLE SODIUM 40 MG ECT PO SCH ×2 (07:48→11:02)
[2019-07-17] MEDS: CITALOPRAM 20 MG TAB PO SCH (08:40)
[2019-07-17] MEDS: MULTIVITAMIN2 1 EA TAB PO SCH (08:40)
[2019-07-17] MEDS: CLONAZEPAM 0.5 MG TAB PO SCH ×2 (08:40→20:22)
[2019-07-17] MEDS: LOSARTAN POTASSIUM 50 MG TAB PO SCH (08:40)
[2019-07-17] MEDS: OXYCODONE HYDROCHLORIDE 5 MG TAB PO PRN ×2 (09:12→20:19)
[2019-07-17] MEDS: ENOXAPARIN 40 MG SOL SC SCH ×2 (11:22→20:23)
[2019-07-17 11:41] LABS: APPEARANCE,URINE Slightly Cloudy; BILIRUBIN,URINE 2+ (NEGATIVE); COLOR,URINE Dark yellow; GLUCOSE, URINE (UA) NEGATIVE (NEGATIVE); KETONES,URINE TRACE (NEGATIVE); LEUKOCYTE ESTERASE ,URINE 1+ (NEGATIVE); NITRATE,URINE POSITIVE (NEGATIVE); OCCULT BLOOD,URINE 2+ (NEG-TRACE); UROBILINOGEN,URINE 0.2 (0.2-1.0 EU)
[2019-07-17 11:49] LABS: BACTERIA 2+ (< 1+); CRYSTALS NEGATIVE (0-3 AVE/HPF); ICTOTEST,URINE NEGATIVE (NEGATIVE); RBC,URINE 0-2 (0-3AV/HPF); WBC,URINE TNTC (0-5AV/HPF)
[2019-07-17] MEDS: CEPHALEXIN 250 MG/5 ML BOTTLE PO SCH ×2 (14:45→20:21)
[2019-07-17] MEDS: CARBIDOPA/LEVODOPA 25/100 TAB PO SCH (20:20)
[2019-07-17] MEDS: TRAZODONE HYDROCHLORIDE 50 MG TAB PO SCH (20:20)
[2019-07-18] MEDS ORDERED: ALBUTEROL/IPRATROPIUM 1 VIAL SOL INH PRN (03:26)
[2019-07-18] MEDS: PANTOPRAZOLE SODIUM 40 MG ECT PO SCH (06:11)
[2019-07-18] MEDS: OXYCODONE HYDROCHLORIDE 5 MG TAB PO PRN ×3 (09:11→16:39)
[2019-07-18] MEDS: LOSARTAN POTASSIUM 50 MG TAB PO SCH (09:12)
[2019-07-18] MEDS: MULTIVITAMIN2 1 EA TAB PO SCH (09:12)
[2019-07-18] MEDS: CITALOPRAM 20 MG TAB PO SCH (09:12)
[2019-07-18] MEDS: ENOXAPARIN 40 MG SOL SC SCH ×2 (09:22→20:03)
[2019-07-18] MEDS: CEPHALEXIN 250 MG/5 ML BOTTLE PO SCH ×3 (09:22→20:03)
[2019-07-18] MEDS ORDERED: PROCHLORPERAZINE EDISYLATE 5 MG/ML SOL IV PRN (09:31)
[2019-07-18] MEDS: CLONAZEPAM 0.5 MG TAB PO SCH ×2 (11:12→20:03)
[2019-07-18] MEDS: CARBIDOPA/LEVODOPA 25/100 TAB PO SCH (20:01)
[2019-07-18] MEDS: TRAZODONE HYDROCHLORIDE 50 MG TAB PO SCH (20:02)
[2019-07-19] MEDS: OXYCODONE HYDROCHLORIDE 5 MG TAB PO PRN ×4 (00:46→22:00)
[2019-07-19] MEDS: PANTOPRAZOLE SODIUM 40 MG ECT PO SCH (06:16)
[2019-07-19] MEDS: ENOXAPARIN 40 MG SOL SC SCH ×2 (09:12→21:05)
[2019-07-19] MEDS: CEPHALEXIN 250 MG/5 ML BOTTLE PO SCH ×3 (09:13→21:04)
[2019-07-19] MEDS: LOSARTAN POTASSIUM 50 MG TAB PO SCH (09:15)
[2019-07-19] MEDS: CITALOPRAM 20 MG TAB PO SCH (09:15)
[2019-07-19] MEDS: MULTIVITAMIN2 1 EA TAB PO SCH (09:16)
[2019-07-19] MEDS: CLONAZEPAM 0.5 MG TAB PO SCH ×2 (09:16→21:03)
[2019-07-19] MEDS: PROCHLORPERAZINE MALEATE 5 MG TAB PO PRN (18:17)
[2019-07-19] MEDS: CARBIDOPA/LEVODOPA 25/100 TAB PO SCH (21:03)
[2019-07-19] MEDS: TRAZODONE HYDROCHLORIDE 50 MG TAB PO SCH (21:03)
[2019-07-20] MEDS: OXYCODONE HYDROCHLORIDE 5 MG TAB PO PRN ×3 (06:46→18:49)
[2019-07-20] MEDS: PANTOPRAZOLE SODIUM 40 MG ECT PO SCH (06:47)
[2019-07-20] MEDS: PROCHLORPERAZINE MALEATE 5 MG TAB PO PRN (06:47)
[2019-07-20] MEDS: CLONAZEPAM 0.5 MG TAB PO SCH ×2 (08:42→20:21)
[2019-07-20] MEDS: CITALOPRAM 20 MG TAB PO SCH (08:43)
[2019-07-20] MEDS: MULTIVITAMIN2 1 EA TAB PO SCH (08:43)
[2019-07-20] MEDS: LOSARTAN POTASSIUM 50 MG TAB PO SCH (08:43)
[2019-07-20] MEDS: CEPHALEXIN 250 MG/5 ML BOTTLE PO SCH ×3 (08:47→20:20)
[2019-07-20] MEDS: ENOXAPARIN 40 MG SOL SC SCH ×2 (09:07→20:18)
[2019-07-20] MEDS: TRAZODONE HYDROCHLORIDE 50 MG TAB PO SCH (20:19)
[2019-07-20] MEDS: CARBIDOPA/LEVODOPA 25/100 TAB PO SCH (20:19)
[2019-07-20 20:38] VITALS: TEMP 98.2
[2019-07-21] MEDS: OXYCODONE HYDROCHLORIDE 5 MG TAB PO PRN ×2 (04:34→10:43)
[2019-07-21] MEDS: PANTOPRAZOLE SODIUM 40 MG ECT PO SCH (06:10)
[2019-07-21] MEDS: PROCHLORPERAZINE MALEATE 5 MG TAB PO PRN (06:10)
[2019-07-21 07:55] VITALS: BP 126/72; PULSE 93; RESP 18; O2SAT 98
[2019-07-21] MEDS ORDERED: ENOXAPARIN 40 MG SOL SC ONE (08:48)
[2019-07-21] MEDS: ENOXAPARIN 40 MG SOL SC SCH (08:51)
[2019-07-21] MEDS: LOSARTAN POTASSIUM 50 MG TAB PO SCH (08:54)
[2019-07-21] MEDS: CITALOPRAM 20 MG TAB PO SCH (08:54)
[2019-07-21] MEDS: MULTIVITAMIN2 1 EA TAB PO SCH (08:54)
[2019-07-21] MEDS: CEPHALEXIN 250 MG/5 ML BOTTLE PO SCH ×2 (08:58→14:38)
[2019-07-21] MEDS: CLONAZEPAM 0.5 MG TAB PO SCH (11:16)
== END 2019-07-21 15:00 | disposition home or self-care (01) | DRG 946 ==
LOC: ACUTE CARE 15:38
PROVIDERS: ADMIT Family Medicine; ATTEND Family Medicine
PROC: F02Z0FZ Bathing/Showering Assessment using Assistive, Adaptive, Supportive or Protective Equipment (ICD-10-PCS; principal; 2019-07-17)
PROC: F02Z3FZ Grooming/Personal Hygiene Assessment using Assistive, Adaptive, Supportive or Protective Equipment (ICD-10-PCS; 2019-07-17)
PROC: F01K0ZZ Muscle Performance Assessment of Musculoskeletal System - Upper Back / Upper Extremity (ICD-10-PCS; 2019-07-17)
DX: Z98.890 Other specified postprocedural states (principal); Z86.718 Personal history of other venous thrombosis and embolism; R30.0 Dysuria; D64.9 Anemia, unspecified; I10 Essential (primary) hypertension; Z43.2 Encounter for attention to ileostomy
CPT/HCPCS: 81001; 87077; 87088; 87186; J0780; J1650; A6402; A6446; A9270-GY

== ENCOUNTER 2019-07-28 12:18 | Emergency (ER) | payer MEDICARE, BC | END 2019-07-28 16:15 | disposition home or self-care (01) | LOC: ED 12:18 ==